=== PATIENT | female | born 1950 | race Caucasian/White ===

== ENCOUNTER 2024-01-15 06:28 | Inpatient (IN) | payer OTHER ==
[2024-01-10 12:58] LABS: Absolute Eosinophils 0.1 K/uL (0-0.5); Absolute Lymphocytes (CBC) 1.5 K/uL (0.7-4.9); Absolute Monocytes 0.5 K/uL (0.1-1.3); Basophils % 0.4 % (0-1.3); Hemoglobin 11.6 g/dL (12.0-15.0); Lymphocytes % 28.7 % (15.3-44.8); MCH 29.6 pg (27.0-35.0); MCHC 32.3 g/dL (32.0-36.0); MCV 91.7 fL (80-100); Monocytes % 9.3 % (3.3-12.3); Neutrophils % 59.6 % (41.7-73.7); Platelets 285 thou/uL (152-406); RBC Red Blood Cell Count 3.93 M/uL (3.86-4.86); Red Cell Distribution Width 12.8 % (12.1-15.2)
[2024-01-10 13:07] LABS: Specific Gravity 1.013 (1.005-1.030); Urine Bilirubin NEGATIVE (Negative); Urine Blood Negative (Negative); Urine Clarity Clear (Clear); Urine Color Light-Yellow (Yellow); Urine Glucose NEGATIVE (Negative); Urine Ketones NEGATIVE (Negative); Urine Microscopic Reflex YN NO UMIC; Urine Nitrite NEGATIVE (Negative); Urine Protein NEGATIVE (Negative); Urine Urobilinogen Normal (Normal); Urine pH 7.5 (5.0-7.0)
[2024-01-10 13:14] LABS: PT Prothrombin Time 11.6 SECONDS (9.4-12.5)
[2024-01-10 13:15] LABS: Protime INR 1.04
[2024-01-10 13:18] LABS: Albumin 3.1 g/dL (3.4-5.0); Albumin/Globulin Ratio 0.8 (1.1-1.8); Anion Gap 6.5 mEq/L (5.0-15.0); Bilirubin Total 0.2 mg/dL (0.2-1.0); Potassium 4.5 mEq/L (3.5-5.1); Protein, Total 7.1 g/dL (6.4-8.2)
[2024-01-15] MEDS ORDERED: CEFAZOLIN SODIUM 2 GM/VIAL ONE (06:32)
[2024-01-15] MEDS ORDERED: GABAPENTIN 100 MG CAP ONE (06:32)
[2024-01-15] MEDS ORDERED: Oxycodone HCl/Acetaminophen 5/325 MG TAB ONE (06:33)
[2024-01-15] MEDS ORDERED: ACETAMINOPHEN 500 MG TAB ONE (06:34)
[2024-01-15] MEDS ORDERED: CELECOXIB 100 MG CAPSULE ONE (06:34)
[2024-01-15] MEDS ORDERED: NA CHLORIDE 0.9% 1,000 ML ONE (06:35)
[2024-01-15] MEDS ORDERED: TRANEXAMIC ACID 1,000 MG/10 ML VIAL IV ONE (06:36)
[2024-01-15] MEDS ORDERED: BUPIVACAINE 0.75% (PF) 2 ML SP ONE (06:42)
[2024-01-15] MEDS ORDERED: MORPHINE SULFATE/PF 1 MG/ML (10 ML AMP) ONE (06:43)
[2024-01-15] MEDS ORDERED: HYDRALAZINE HCL 20 MG/ML VIAL ONE (06:44)
[2024-01-15] MEDS: HYDRALAZINE HCL 20 MG/ML VIAL IV ONE (06:47)
[2024-01-15] MEDS ORDERED: LIDOCAINE 1% MPF 5 ML VIAL ONE (06:53)
[2024-01-15] MEDS ORDERED: MIDAZOLAM HCL 2 MG/2 ML INJ ONE (06:53)
[2024-01-15] MEDS ORDERED: FENTANYL CITR 100 MCG/2 ML ONE (06:54)
[2024-01-15] MEDS: CELECOXIB 100 MG CAPSULE PO ONE (06:59)
[2024-01-15] MEDS: GABAPENTIN 300 MG CAP PO ONE (06:59)
[2024-01-15] MEDS: Oxycodone HCl/Acetaminophen 5/325 MG TAB PO ONE (06:59)
[2024-01-15] MEDS: ACETAMINOPHEN 500 MG TAB PO ONE (06:59)
[2024-01-15] MEDS ORDERED: propofoL 200 MG/20 ML VIAL IV ONE (07:28)
[2024-01-15] MEDS ORDERED: KETOROLAC 30 MG/ML INJ ONE (07:48)
[2024-01-15] MEDS ORDERED: dexAMETHasone 4 MG/ML VIAL ONE (07:48)
[2024-01-15] MEDS ORDERED: ONDANSETRON 4 MG/2 ML VIAL ONE (07:48)
[2024-01-15] MEDS ORDERED: EPHEDRINE SULF 50 MG/ML VIAL ONE (08:06)
[2024-01-15] MEDS: NA CHLORIDE 0.9% 1,000 ML ONE ×3 (08:06→18:25)
[2024-01-15] MEDS ORDERED: KETAMINE HCL IN 0.9 % NACL 50 MG/5 ML SYRINGE IV ONE (08:22)
--- NOTE | 2024-01-15 09:12 | RAD REPORT ---
EXAM DESCRIPTION: RAD - Hip Left 1 View - 01/15/2024 9:05 am CLINICAL HISTORY: LT TOTAL HIP ARTHROPLASTY COMPARISON: No comparisons FINDINGS: Left total hip arthroplasty in progress radiographs submitted. Femoral stem component and acetabular cup evident placed. Skin defect noted laterally.
--- NOTE | 2024-01-15 09:18 | P.BOP ---
Preoperative diagnosis: left severe arthritc hip Postoperative diagnosis: same Primary procedure: left morgan Estimated blood loss: 100ccs Anesthesia: Spinal Transferred to: Recovery Room Condition: Good
--- OUTSIDE RECORDS SUMMARY | 2024-01-15 09:34 | XMS REPORT | Continuity of Care Document ---
Author Name Unknown Address [address] [place] [address] [facility] thconnect Address [address] [place] [address] Care Team Providers Care Well Tester Name Role Phone ERIC BUTCHER Primary Care Physician Jason morillo RADIOLOGY Attending Clinician Unavailable Radiology Attending Clinician Unavailable Cayden Barraza Cardiology Attending Clinician Unavailable ERIC BUTCHER Admitting Clinician Unavailab le KNOW, DOES_NOT Admitting Clinician Unavailable Payers Payer Name Policy Type Policy Number Effective Date Expirati on Date Source [facility] [employer] [place] [id number] 2017 00:00:00 Allergies, Adverse Reactions, Alerts Allergy Name Allergy Type Status Severity Reaction(s) Onset Date Inactive Date Treating Clinician Comments Source No Known Allergie s DA Active U 07-05 00:00: 00 [facility] NO KNOWN ALLERGIE S Drug Class Active [facility] Social History Social Habit Start Date Stop Date Quantity Comments Source Sexual orientation U [facility] Sex Assigned At 1950 00:00:00 1950 00:00:00 [facility] Smoking Status Start Date Stop Date Source Tobacco smoking consumption unknown [facility] Encounters Start Date/Time End Date/Time Encounter Type Admission Type Attending Clinicians Care Facility Care Department Encounter ID Source 2023-09-17 08:47:59 2023-09-17 23:59:00 Outpatient R RADIOLOGY [facility] [id number] [facility] 2023-09-17 08:45:00 2023-09-17 23:59:00 Hospital Encounter Radiology [facility] [id number] [facility] 2023-07-07 06:55:00 2023-07-07 06:55:00 Outpatient Cayden Mayers [facility] CATH [id number] [facility] Results Test Description Test Time Test Comments Results Result Co mments Source COMPREHENSIVE METABOLIC [id number] 09:24:00* Test Item Value Reference Range Interpretation Comme nts SODIUM (test code = NA) 140 mmol/L 134-147 N POTASSIUM (test code = K) 4.2 mmol/L 3.4-5.0 N CHLORIDE (test code = CL) 108 mmol/L 100-108 N CARBON DIOXIDE (test code = CO2) 32 mmol/L 21-32 N ANION GAP (test code = GAP) 0.0 GAP calc 4.0-15.0 L GLUCOSE (test code = GLU) 110 MG/DL 70-110 N BLOOD UREA NITROGEN (test code = BUN) 12 MG/DL 7-18 N GLOMERULAR FILTRATION RATE (test code = GFR) >=60 max estimate estGFR >60 The Glomerular Filtration Rate is a calculated parameterbased on serum Creatinine, patient age and sex. GFR valuesless than 60 mL/min/1.73 square meters are indicative ofChronic Kidney Disease. Values less than 15 mL/min/1.73square meters indicate Kidney failure. The calculation forGFR is based on the CKD-EPI (2020) calculation. This formulais race indifferent and is the recommended formula for GFRby the National Kidney Foundation for Adults.The GFR will not calculate if the sex is unknown or if thepatient's age is <18 years. CREATININE (test code = CREAT) 0.6 MG/DL 0.6-1.0 N TOTAL PROTEIN (test code = PROT) 8.1 G/DL 6.4-8.2 N ALBUMIN (test code = ALB) 3.7 G/DL 3.4-5.0 N GLOBULIN (test code = GLOB) 4.4 GM/dL ALBUMIN/GLOBULIN RATIO (test code = A/G) 0.8 RATIO 1.2-2.2 L CALCIUM (test code = CA) 10.0 MG/DL 8.5-10.1 N BILIRUBIN TOTAL (test code = BILT) 0.40 MG/DL 0.2-1.2 N SGOT/AST (test code = AST) 17 Unit/L 15-37 N SGPT/ALT (test code = ALT) 21 Unit/L 12-78 N ALKALINE PHOSPHATASE TOTAL (test code = ALKP) 135 Unit/L 45-117 H LIPID PROFILE (CORONARY RISK)2023-07-07 09:24:00* Test Item Value Reference Range Interpretation Comme nts TRIGLYCERIDES (test code = TRIG) 127 MG/DL 0-150 N CHOLESTEROL (test code = CHOL) 167 MG/DL 133-200 N CHOLESTEROL/HDL RATIO (test code = CHOLHDL) 3.15 RATIO See_Comment RISK ASSOCIATED WITH CHOL/HDL RATIOS: RISK MALE FEMALE1/2 AVERAGE 3.43 3.27AVERAGE 4.97 4.442X AVERAGE 9.55 7.053X AVERAGE 23.39 11.04 NOTE THAT THE REFERENCE VALUE IS RELATED TO RISK LEVELS ASRECOMMENDED BY THE [facility]ATIONAL HE[facility], LUNG, AND BLOOD INSTITUTE. [Automated message] The system which generated this result transmitted reference range: 0-. The reference range was not used to interpret this result as normal/abnormal. HDL CHOLESTEROL (test code = HDL) 53 MG/DL 40-59 N NON-HDL CHOLESTEROL (test code = NHDL) 114 mg/dL <130 LIPOPROTEIN LDL (test code = LDL) 96 MG/DL 0-129 N <100 [id number] 0 - 129 NEAR OPTIMAL/ABOVE [id number] - 159 [id number] - 189 HIGH>OR= 190 VERY HIGHNOTE THAT GUIDELINES ARE PROVIDED BY NATIONAL CHOLESTEROLEDUCATION PROGRAM ADULT TREATMENT PANEL III LDL/HDL (test code = LDL/HDL) 1.81 Ratio See_Comment N [Automated messa ge] The system which generated this result transmitted reference range: 1.48-3.22 Avg. The reference range was not used to interpret this result as normal/abnormal. PROTHROMBIN [id number] 07:52:00* Test Item Value Reference Range Interpretation Comme nts PT PATIENT (test code = PTP) 11.9 SECONDS 9.3-12.9 N INTERNATIONAL NORMAL RATIO (test code = INR) 1.08 INR Unit 0.8-1.2 N TARGET INR BY INDICATION Indication INR1. Prophylaxis of venous thrombosis 2.0 - 3.0 (orthopedic surgery), Prophylaxis of venous thrombosis (other than high-risk surgery), Treatment of Deep Vein Thrombosis/Pulmonary Embolism, Prevention of systemic embolism - Tissue heart valves, Acute Myocardial Infarction (to prevent systemic embolism), Valvular heart disease, Acute Myocardial Infarction (to prevent systemic embolism), Valvular heart disease, Atrial Fibrillation, Bileaflet mechanical valve in aortic position.2. Mechanical prosthetic valves (high risk), 2.5 - 3.5 Presence of Lupus Anticoagulant or Antiphospholipid Antibodies, Prevention of systemic embolism - Acute Myocardial Infarction (to prevent recurrent infarct). CBC W/AUTO [id number] 07:47:00* Test Item Value Reference Range Interpretation Comme nts WHITE BLOOD CELL (test code = WBC) 6.3 K/mm3 3.5-11.0 N RED BLOOD CELL (test code = RBC) 4.74 M/mm3 4.70-6.10 N HEMOGLOBIN (test code = HGB) 13.8 G/DL 10.4-14.9 N HEMATOCRIT (test code = HCT) 43.0 % 31.5-44.1 N MEAN CELL VOLUME (test code = MCV) 90.7 Fl 84.5-98.6 N MEAN CELL HGB (test code = MCH) 29.1 pg 27.0-34.2 N MEAN CELL HGB CONCETRATION (test code = MCHC) 32.1 G/DL 31.5-34.0 N RED CELL DISTRIBUTION WIDTH (test code = RDW) 12.2 SD 11.5-14.5 N PLATELET COUNT (test code = PLT) 352 K/mm3 150-450 N MEAN PLATELET VOLUME (test c ode = MPV) 10.70 fL 7.0-10.5 H NEUTROPHIL % (test code = NT%) 63.7 % 40-76 N IMMATURE GRANULOCYTE % (test code = IG%) 0.2 % 0.0-5.0 N LYMPHOCYTE % (test code = LY%) 24.0 % 20.5-51.1 N MONOCYTE % (test code = MO%) 8.6 % 1.7-9.3 N EOSINOPHIL % (test code = EO%) 3.2 % 0.0-6.0 N BASOPHIL % (test code = BA%) 0.3 % 0.0-2.0 N NUCLEATED RBC % (test code = NRBC%) 0.0 /100WBC% 0.0-1.0 N NEUTROPHIL # (test code = NT#) 4.0 K/mm3 1.8-7.6 N IMMATURE GRANULOCYTE # (test code = IG#) 0.01 x10 3/uL 0.00-0.03 N LYMPHOCYTE # (test code = LY#) 1.5 K/mm3 0.6-3.2 N MONOCYTE # (test code = MO#) 0.5 K/mm3 0.3-1.1 N EOSINOPHIL # (test code = EO#) 0.2 K/mm3 0.0-0.4 N BASOPHIL # (test code = BA#) 0.0 K/mm3 0.0-0.1 N NUCLEATED RBC # (test code = NRBC#) 0.0 K/mm3 0.0-0.1 N Notes Date/Time Note Provider Source 2023-07-07 10:42:00 [id number] [address] PATIENT NAME: PUJA JEAN ADMIT DATE: 07/07/23 ACCOUNT NO: [id number] ROOM NO: AGE: 72 REPORT TYPE: CARDIAC CATHETERIZATION REPORT SEX: F ADMITTING PHYSICIAN: ATTENDING PHYSICIAN: Cayden Barraza MD PROCEDURE DATE: 07/07/2023 FILTER TIP CATCHER: Cayden Barraza MD INDICATION FOR THE PROCEDURE: Atherosclerotic cardiovascular disease. PREOPERATIVE EVALUATION: Abnormal nuclear stress test. TITLE OF PROCEDURE: 1. Left heart catheterization. 2. Abdominal and aortoiliac angiograms. 3. Sealing device. RECOMMENDATION: Medical therapy and risk factor modification. FINAL DIAGNOSES: Two-vessel coronary artery disease, calcified arteries, mitral annular calcification, aortoiliac disease. CONTRAST: 150 mL. ANESTHESIA: Conscious sedation with Versed and fentanyl. 1% lidocaine for local anesthesia. COMPLICATIONS: None. ESTIMATED BLOOD LOSS: Minimal. PROCEDURE IN DETAIL: After informed consent, the patient was brought to the cardiac catheterization lab in a stable fasting nonsedated state. She was prepped and draped in the usual sterile fashion. After conscious sedation, 1% lidocaine was administered to the right common femoral artery area for local anesthesia. A 6-Icelandic sheath was placed in the right common femoral artery using standard techniques and fluoroscopy. After heparinization, access to the heart through the aorta was difficult due to the calcified plaquing and significant disease, so at the end of the procedure, I did an abdominal angiogram, which shows a small suprarenal abdominal aortic aneurysm at 2.5 cm. The right renal was 30%. The infrarenal aorta is heavily calcified with an eccentric plaque right before the bifurcation around 50%. The ostial common iliac on the right was 55% and then 45% the rest of the common iliac, 30% the right external iliac, 30% left common iliac and left external iliac. I did the left heart catheterization. The left main is very short. There is a hazy 55% lesion in the ostial LAD. The rest of the LAD appears to have no angiographic PATIENT NAME: PUJA JEAN disease. There is a small ramus intermedius with 90% disease. The circumflex is a large, dominant vessel with no angiographic disease. The right coronary artery is a small nondominant vessel with no angiographic disease. Left ventricular angiogram showed ejection fraction of 70%. Left ventricular end-diastolic pressure of 16. No wall motion abnormalities or aortic valve gradient. The right groin was sealed using Angio-Seal. There were no complications. The patient tolerated the procedure well and was transferred to the holding area for observation to be discharged in few hours on medical therapy and risk factor modification. There were no complications. Dictated By: Cayden Barraza MD Date Dictated: 07/07/2023 10:42:02 Date Transcribed: 07/07/2023 12:23:29 QUINTIN/ELIZABETH Teague #: [id number] Receipt ID: [id number] Authenticated by Cayden Barraza MD On 07/08/2023 08:09:19 AM at 0809 PATIENT NAME: PUJA JEAN [facility] 2023-07-07 07:34:00 [id number] [address] PATIENT NAME: PUJA JEAN ADMIT DATE: 07/07/23 ACCOUNT NO: [id number] ROOM NO: AGE: 72 REPORT TYPE: eELECTROCARDIOGRAM SEX: F ADMITTING PHYSICIAN: ATTENDING PHYSICIAN: Cayden Barraza MD Order: [id number] Test Reason : Pre Heart Cath Test Date/Time Stamp: SunJul 07 2023 07:34:14 Blood Pressure : / mmHG Vent. Rate : 064 BPM Atrial Rate : 064 BPM P-R Int : 164 ms QRS Dur : 088 ms QT Int : 398 ms P-R-T Axes : 059 067 069 degrees QTc Int : 410 ms Sinus rhythm with premature supraventricular complexes Otherwise normal ECG No previous ECGs available Confirmed by CAYDEN BARRAZA ([id number]) on 07/07/2023 8:25:26 AM Referred By: Cayden Barraza Confirmed by:CAYDEN BARRAZA at 0825 PATIENT NAME: PUJA JEAN [facility] 2023-07-06 07:12:00 [id number] [address] PATIENT NAME: PUJA JEAN ADMIT DATE: ACCOUNT NO: [id number] ROOM NO: AGE: 72 REPORT TYPE: HISTORY AND PHYSICAL SEX: F ADMITTING PHYSICIAN: ATTENDING PHYSICIAN: Cayden Barraza MD Cardiology PATIENT NAME: PUJA JEAN ADMIT DATE:07/07/2023 ADMISSION DATE: 07/07/2023 07:30:00 ADMISSION HISTORY AND PHYSICAL FILTER TIP CATCHER: Cayden Barraza MD. REASON FOR ADMISSION: Ischemia, suspected significant coronary artery disease, multiple cardiovascular risk factors and history of arrhythmias for cardiac catheterization and possible revascularization. HISTORY OF PRESENT ILLNESS: Puja is a 72-year-old lady who presented to my office in 05/2023 for evaluation of multiple risk factors, paroxysmal atrial fibrillation, tachycardia, and evaluation for left total hip replacement. The patient underwent noninvasive workup. Her echocardiogram showed mild mitral regurgitation. Ejection fraction around 50 to 55%, pulmonary hypertension 40 to 50. Holter monitoring showed 2 short paroxysmal supraventricular tachycardia and atrial fibrillation runs. Chemical stress test showed mild anterior and severe inferolateral and inferoposterior ischemia with possible scarring, ejection fraction was normal. The patient has symptoms of dyspnea. No other cardiac symptoms. She has had history of strokes, stroke was about 20 years ago, told possibly due to atrial fibrillation. No specific records available. The patient has been on aspirin over the years and she is here today for cardiac catheterization to assess her coronaries prior to clearing her for orthopedic surgery. PAST MEDICAL HISTORY: Remarkable for paroxysmal atrial fibrillation, hypertension, hyperlipidemia, CVA, hypothyroidism, osteoarthritis, diabetes, borderline cataracts, overactive bladder, and depression. PAST SURGICAL HISTORY: C-sections in the past. ALLERGIES: NO KNOWN DRUG ALLERGIES. MEDICATIONS: Metoprolol 50 mg daily, atorvastatin 20 mg daily, aspirin 325 mg daily, pain medications, Levothroid 150 mcg daily, gemfibrozil 600 mg b.i.d., liothyronine 5 mcg daily, oxybutynin 5 mg daily, sertraline 25 mg daily, Celebrex 200 mg daily, metformin 500 mg twice a day on hold, and enalapril 20 mg twice a day. SOCIAL HISTORY: There is no history of smoking, alcohol, or street drug use. The patient is retired. PATIENT NAME: PUJA JEAN FAMILY HISTORY: Positive for atherosclerotic cardiovascular disease. REVIEW OF SYSTEMS: Remarkable for the above, in addition to cataracts, thyroid issues, dry mouth, osteoarthritis, depression. No acute GI or symptoms. No recent TIAs or strokes. She has had an old stroke as mentioned above. Rest of the review of systems is enclosed. PHYSICAL EXAMINATION: GENERAL: Reveals a pleasant 72-year-old lady in no acute distress. VITAL SIGNS: Blood pressure 126/74, pulse 64 and regular, respiratory rate 16 and unlabored, temperature afebrile. HEENT: Head is atraumatic, normocephalic. Eyes and ENT examination within normal for age. NECK: Supple, no jugular venous distention, bruits, or lymphadenopathy. Normal upstroke. LUNGS: Clear and resonant. HEART: Regular rate and rhythm, 2/6 systolic ejection murmur at the left lower sternal border. No gallops. ABDOMEN: Soft, no tenderness, no organomegaly, no masses or bruits. EXTREMITIES: 2+ distal pulses. No edema, cyanosis, or clubbing. NEUROLOGIC: Alert and oriented x3. The patient has diminished sensation on the left side since the stroke; otherwise, the motor strength is equal. LABORATORY DATA: Pending. Noninvasive cardiovascular workup enclosed. IMPRESSION: This is a 72-year-old lady with dyspnea, abnormal nuclear stress test, multiple cardiovascular risk factors, appears to have significant coronary artery disease. She needs clearance for left total hip replacement. The patient is here for cardiac catheterization to assess her coronaries prior to clearance for surgery. PLAN: The recommendation is to proceed with the above-mentioned procedures. The risks and benefits of the planned procedures were discussed in detail with the patient and available family members and she is willing to proceed. Rest as per orders. Dictated By: Cayden Barraza MD Date Dictated: 07/06/2023 07:12:27 Date Transcribed: 07/06/2023 07:40:00 QUINTIN/ANIBAL/ALEX Receipt ID: [id number] Authenticated and Edited by Cayden Barraza MD On 07/06/23 4:00:29 PM at 0402 PATIENT NAME: PUJA JEAN [facility] Aron
[2024-01-15 10:09] LABS: Hematocrit 30.8 % (36.0-45.0); Hemoglobin 10.2 g/dL (12.0-15.0)
--- NOTE | 2024-01-15 10:56 | OP ---
Date of Procedure: 01/15/2024 Surgeon: Eben Kelly MD Preoperative Diagnosis: Severe left hip arthritis. Postoperative Diagnosis: Severe left hip arthritis. Procedure: Left total hip arthroplasty using the John system. Estimated Blood Loss: 100 cc. Complications: There were no complications. Indications For Operation: Ms. Gold is a 73-year-old female who has horrible arthritis related to h er left hip. It is nearly ankylosed, although she does have flexion to approximately 30 degrees, she has no internal or external rotation. She walks with a pronounced limp as well as assistive device and suffering from tremendous pain by report. X-rays revealed essentially destroyed hip with large o steophytes and loss of complete joint space. Risks, benefits, and alternatives of the procedure had been discussed with the patient including that this is somewhat difficult, also will have to lengthen her leg probably somewhat. There are risks to dislocation and possibility of nerve injuries are def initely present. She was told that we will deal with this as carefully as we can with this and she a grees to proceed. Description Of Procedure: The patient was taken to the operating room. Spinal anesthesia was obtain ed by Anesthesia staff. Following this, a Bentley was placed. She was then placed in right side down position with all of her bony prominences being checked and an axillary roll. After this, left lower extremity was then prepped and draped in usual sterile fashion with the exception that she only has about 20 degrees of abduction, essentially no external rotation making prepping somewhat difficult. However, we were very careful to prep in the standard fashion regarding all surfaces. Following this , she was then draped in a standard fashion and a standard posterior lateral incision was taken down carefully through skin and soft tissues. Meticulous hemostasis being maintained using Bovie electroc autery. This led down to the fascia. A small stab wound was made in the fascia. It was carried up near to the tip of the greater trochanter. It was then curved gently backwards. The Charnley was th en carefully placed. It should be noted that she has a lot of fat posterior to the greater trochante r, but care was taken to palpate many times for the sciatic nerve as the external rotators are taken down and tagged for later repair, there was essentially no identifiable capsule leading down to a sig nificant amount of jose bone. Movement of the hip did not reveal the hip itself as it appeared to b e nearly completely covered posteriorly and osteotome was then used to remove some of the superior an d posterior osteophytes, which then did allow for visualization of the hip. More osteophytes were ta darlin off anteriorly to allow for better visualization. Now, the hip was able to be identified as it w as moved through flexion and extension as well as internal and external rotation. Very slow meticulo us removal of osteophytes, as well as, takedown of soft tissues allowed for dislocation of the hip. It was then cut somewhat shorter neck cut than normal as I felt this would be very tight working cond itions. There was found to be huge osteophytes anteriorly, which were then removed. Attention was t hen turned to the acetabulum. The head sized using ring gauges and initial reaming is more or less s traight medial to help deepen the socket. It was then converted into sequential reaming to a size 51 . A size 52 cup was then attempted to be placed, but definitely did not stick. Decision made that p edwinably should further deepen this using the reamer and it was very carefully reamed and after the re amer was removed, there was some medial wall, although posterior wall was getting quite thin. After this, the cup was then placed again. It now appeared to hold very well. However, most likely, it wa s decided at that point to place a screw. Attention was then turned to the femur. A box stacker was then used to establish lateralization and it was then sequentially broached to a size 5. After this, x-rays were taken which were somewhat difficult to interpret because left hemipelvis was difficult v isualization. However, the cup itself appeared to be in fairly good position. Decision was made to place a size 25 mm screw in standard fashion which has a decent bite, although I would not say robust . Following this, a size 5 stem was placed. It was then trialed with a standard. It was extremely difficult to reduce. Therefore, I trialed with the first minus. The first minus was then placed wit hin the acetabulum after the liner was placed and it is stable to flexion of 90 degrees, full adducti on, internal rotation to at least 40 degrees with a significant amount of traction. It was then nazia thang and it was selected as a final size. The final ball was then tapped into place and relocated. I t was stable in the same parameters. The external rotators were carefully repaired back to the great er trochanter via bone tunnels. However, this was able to be done with only 1 stay suture as the ext ernal rotators were definitely atrophic, although the piriformis tendon is repaired back. Following this, it was again copiously irrigated. The fascia was closed in a watertight fashion using heavy Vi cryl sutures. This was followed by closure of skin with Vicryl and jaden. The patient was then pl aced in Aquacel dressing and taken to recovery room. /[place] Voice ID: [id number] Report ID: [id number]
[2024-01-15 13:41] VITALS: BMI 22.6
[2024-01-15] MEDS: ALBUMIN HUMAN 25% 100 ML IV SCH (13:57)
[2024-01-15] MEDS: MIDODRINE HCL 5 MG TABLET PO SCH (13:57)
[2024-01-15] MEDS: NA CHLORIDE 0.9% 1,000 ML IV SCH (13:57)
[2024-01-15] MEDS: NA CHLORIDE 0.9% 1,000 ML IV ONE (13:57)
[2024-01-15] MEDS: CEFAZOLIN 1 GM in NA CHLORIDE 0.9% 50 ML IVPB SCH (16:52)
[2024-01-15 17:40] LABS: Hematocrit 30.9 % (36.0-45.0); Hemoglobin 9.7 g/dL (12.0-15.0)
[2024-01-15] MEDS: HYDROCORTISONE SUC 100 MG INJ ONE (18:12)
[2024-01-15] MEDS: HYDROCORTISONE SUC 100 MG INJ IV ONE (18:20)
--- NOTE | 2024-01-15 22:54 | P.CNS ---
Date of Consult: 01/15/24 Reason for Consult: Medical management; hypotension Requesting Physician: Eben Kelly Chief Complaint: medical management; hypotension History of Present Illness: Patient is a 73-year-old female who presented to the hospital for a total hip arthroplasty. He had patient came into the hospital earlier today with a systolic blood pressure of 160. She received IV hydralazine as well as multiple medications prior to surgery. After surgery her blood pressure had decreased significantly with a systolic of 70s and a diastolic of 40s. Patient was given IV fluid boluses and her blood pressure has improved somewhat. She is awake and alert and oriented to person place and time. She has no other complaints except she is a little lethargic. At this time, we will continue with fluid boluses and hopefully as the anesthesia comes out of her system her blood pressure will stabilize. Patient will be admitted to the hospital for further evaluation for adrenal insufficiency as well as assess her ejection fraction with an ec hocardiogram. Monitor her renal function and her urine output closely. Patient will be admitted to the hospital for further evaluation. Will monitor her in ICU for the time being. Allergies No Known Allergies Allergy (Unverified 01/16/24 01:23) Home Medications: Aspirin [Aspirin EC 325 MG] 325 mg PO DAILY 08/31/23 Celecoxib [Celebrex] 200 mg PO BID 08/31/23 Enalapril Maleate 20 mg PO DAILY 08/31/23 Hydrocodone Bit/Acetaminophen [Hydrocodon-Acetaminophn 10-325] 0.5 - 1 tab PO Q6HP PRN 08/31/23 Levothyroxine Sodium [Synthroid] 150 mcg PO DAILY 08/31/23 Liothyronine Sodium [Cytomel] 5 mcg PO DAILY 08/31/23 Metoprolol Succinate [Toprol Xl] 50 mg PO DAILY 08/31/23 Oxybutynin Chloride [Oxybutynin Chloride ER] 2 tab PO TID 08/31/23 Risedronate Sodium [Actonel] 35 mg PO EVERY 7TH DAY 08/31/23 Sertraline [Zoloft] 25 mg PO DAILY 08/31/23 gemfibroziL [Lopid] 600 mg PO DAILY 08/31/23 Atorvastatin Calcium [Lipitor] 20 mg PO BEDTIME 01/10/24 Metformin HCl [Glucophage] 850 mg PO DAILY WITH BREAKFAST 01/10/24 - Past Medical/Surgical History Diabetic: Yes -: HTN -: HLD -: Hypothyroidism -: DM II -: AFIB -: Arthritis -: diabetes -: x 2 -: sinus surgery - Family History Father Medical History: Heart disease, Diabetes Mother Medical History: Heart disease Sister Medical History: Heart disease - Social History Smoking Status: Former smoker Alcohol use: No CD- Drugs: No Caffeine use: Yes Place of Residence: Home Review of Systems 10-point ROS is otherwise unremarkable Physical Examination Temp Pulse Resp BP Pulse Ox 97.8 F 88 17 76/56 L 100 01/15/24 16:00 01/15/24 18:00 01/15/24 18:00 01/15/24 18:00 01/15/24 18:00 General: Alert, In no apparent distress, Oriented x3 HEENT: Atraumatic, PERRLA, Mucous membr. moist/pink, EOMI, Sclerae nonicteric Neck: Supple, 2+ carotid pulse no bruit, No LAD, Without JVD or thyroid abnormality Respiratory: Clear to auscultation bilaterally, Normal air movement Cardiovascular: Regular rate/rhythm, Normal S1 S2, No murmurs Gastrointestinal: Normal bowel sounds, Soft and benign, Non-distended, No tenderness Musculoskeletal: No clubbing, No swelling, No tenderness Integumentary: No rashes Neurological: Normal speech, Normal tone, Sensation intact, Cranial nerves 3-12 intact, Normal affect Lymphatics: No axilla or inguinal lymphadenopathy Laboratory Data (last 24 hrs) 01/15/24 01/15/24 17:20 10:00 Hgb 9.7 L 10.2 L Hct 30.9 L 30.8 L - Problems (1) S/P total left hip arthroplasty Current Visit: Yes Status: Acute (2) Hypotension Current Visit: Yes Status: Acute (3) History of hypertension Current Visit: Yes Status: Acute (4) Hypothyroidism Current Visit: Yes Status: Acute (5) Osteoarthritis Current Visit: Yes Status: Acute Conclusions/ Impression: Plan: 1. Continue with IV fluids 2. Monitor H&H 3. Echocardiogram 4. Cortisol levels 5. Thyroid studies 6. Hold antihypertensives 7. PICC line placement; 8. Possible vasopressor support 9. GI and DVT prophylaxis Critical Care: Yes Time Spent Managing Pts care (In Minutes): 50
[2024-01-16 05:22] LABS: Absolute Lymphocytes (CBC) 1.1 K/uL (0.7-4.9); Absolute Monocytes 1.3 K/uL (0.1-1.3); Absolute Neutrophil 12.2 K/uL (1.8-8.0); Basophils % 0.1 % (0-1.3); Hematocrit 27.3 % (36.0-45.0); Hemoglobin 8.8 g/dL (12.0-15.0); Lymphocytes % 7.6 % (15.3-44.8); MCH 30.2 pg (27.0-35.0); MCHC 32.2 g/dL (32.0-36.0); MCV 93.9 fL (80-100); Neutrophils % 83.3 % (41.7-73.7); Platelets 256 thou/uL (152-406); Red Cell Distribution Width 13.2 % (12.1-15.2)
[2024-01-16 05:46] LABS: ALT/SGPT 15 U/L (13-56); AST/SGOT 33 U/L (15-37); Albumin 2.8 g/dL (3.4-5.0); Alkaline Phosphatase 59 U/L (45-117); BUN Blood Urea Nitrogen 29 mg/dL (7-18); Bicarbonate 26 mEq/L (21-32); Globulin 2.8 g/dL (2.3-3.5); Glomerular Filtration Rate 34 ml/min (=/>90); Glucose Level 117 mg/dL (74-106); Magnesium 1.9 mg/dL (1.6-2.4); Protein, Total 5.6 g/dL (6.4-8.2); Sodium Level 143 mEq/L (136-145)
[2024-01-16 05:49] LABS: Bilirubin Total < 0.2 mg/dL (0.2-1.0)
--- NOTE | 2024-01-16 08:02 | RAD REPORT ---
EXAM DESCRIPTION: RAD - Chest Single View - 01/16/2024 5:52 am CLINICAL HISTORY: pneumonia Chest pain. COMPARISON: Chest Pa And Lat (2 Views) dated 08/31/2023 FINDINGS: Portable technique limits examination quality. Mild atelectasis is present in the medial right lung base. Trace bilateral pleural fluid. The heart i s upper limit normal in size. Aortic atherosclerosis. IMPRESSION: Mild atelectasis versus infiltrate medial right lung base
[2024-01-16] MEDS: Mupirocin NASAL 2 APPL/1 GM TUBE NAS SCH (09:00)
[2024-01-16] MEDS: ENOXAPARIN 40 MG/0.4 ML SQ SCH (09:37)
--- NOTE | 2024-01-16 10:34 | RAD REPORT ---
EXAM DESCRIPTION: RAD - Chest Single View - 01/16/2024 10:13 am CLINICAL HISTORY: SONAM PICC COMPARISON: Chest Single View dated 01/16/2024; Chest Pa And Lat (2 Views) dated 08/31/2023 FINDINGS: Portable chest was obtained following placement of a right upper extremity PICC line. The catheter tip projects over the SVC..
[2024-01-16] MEDS: NOREPINEPHRINE 4 MG in D5W 250 ML IV SCH (11:38)
[2024-01-16] MEDS: HYDROCODONE/APAP 7.5/325 MG TAB PO PRN (11:42)
[2024-01-17] MEDS: HYDROCODONE/APAP 7.5/325 MG TAB PO ONE (04:55)
[2024-01-17] MEDS: HYDROCODONE/APAP 7.5/325 MG TAB PO PRN (04:55)
[2024-01-17 05:45] LABS: Hemoglobin 8.2 g/dL (12.0-15.0)
[2024-01-17 06:13] LABS: Anion Gap 8.5 mEq/L (5.0-15.0); BUN Blood Urea Nitrogen 36 mg/dL (7-18); Bicarbonate 24 mEq/L (21-32); Glomerular Filtration Rate 52 ml/min (=/>90); Glucose Level 107 mg/dL (74-106); Potassium 4.5 mEq/L (3.5-5.1); Sodium Level 140 mEq/L (136-145)
[2024-01-17 06:15] LABS: Thyroid Stimulating Hormone < 0.005 uIU/mL (0.358-3.740); Troponin High Sensitivity 230.8 pg/mL (<58.9)
--- NOTE | 2024-01-17 08:14 | ECHO ---
HEIGHT: 5 ft 3 in WEIGHT: 147 lb 0 oz DATE OF STUDY: 01/16/[address]: Neville Munoz MD 2-DIMENSIONAL: YES M.MODE: YES DOPPLER: YES COLOR FLOW: YES TDS: YES PORTABLE: YES DEFINITY: BUBBLE STUDY: DIAGNOSIS: HYPOTENSION CARDIAC HISTORY: CATHERIZATION: YES SURGERY: NO PROSTHETIC VALVE: NO PACEMAKER: NO MEASUREMENTS (cm) DIASTOLIC (NORMALS) SYSTOLIC (NORMALS) IVSd 0.9 (0.6-1.2) LA Diam 2.8 (1.9-4.0) LVEF 60-65% LVIDd 4.2 (3.5-5.7) LVIDs 3.0 (2.0-3.5) %FS 30% LVPWd 1.0 (0.6-1.2) Ao Diam 2.8 (2.0-3.7) 2 DIMENSIONAL ASSESSMENT: RIGHT ATRIUM: MILD ENLARGED LEFT ATRIUM: MILD ENLARGED RIGHT VENTRICLE: NORMAL LEFT VENTRICLE: NORMAL TRICUSPID VALVE: MILD TRICUSPID REGURGITATION MITRAL VALVE: MILD MITRAL REGURGITATION PULMONIC VALVE: NORMAL AORTIC VALVE: NORMAL PERICARDIAL EFFUSION: NONE AORTIC ROOT: NORMAL LEFT VENTRICULAR WALL MOTION: NORMAL DOPPLER/COLOR FLOW: NORMAL COMMENTS: 1. NORMAL LEFT VENTRICULAR SYSTOLIC FUNCTION, EJECTION FRACTION 60-65%, NORMAL WALL MOTION 2. NORMAL DIASTOLIC FUNCTION 3. MODERATE PULMONARY HYPERTENSION (RIGHT VENTRICULAR SYSTOLIC PRESSURE 55-60 mmHg) TECHNOLOGIST: OWEN GARCIA
[2024-01-17] MEDS ORDERED: OXYBUTYNIN ER 5 MG TAB PO SCH (09:00)
[2024-01-17] MEDS ORDERED: RISEDRONATE SODIUM 35 MG PO SCH (09:00)
[2024-01-17] MEDS: DOCUSATE NA 100 MG CAP PO PRN (09:09)
[2024-01-17] MEDS: SERTRALINE HCL 50 MG TAB PO SCH ×2 (09:10→21:35)
[2024-01-17] MEDS: LEVOTHYROXINE SOD 0.05 MG TABLET PO SCH (09:10)
[2024-01-17] MEDS: LIOTHYRONINE SOD 5 MCG TAB PO SCH (09:10)
[2024-01-17] MEDS: gemfibroziL 600 MG TAB PO SCH (09:10)
[2024-01-17] MEDS: ASPIRIN EC 325 MG TABLET PO SCH (09:10)
[2024-01-17] MEDS: CELECOXIB 100 MG CAPSULE PO SCH (09:11)
--- NOTE | 2024-01-17 10:11 | P.PN ---
Subjective Date of Service: 01/16/24 Patient's mentation is still altered. Patient's blood pressure is still on the low side. Holding off on any vasopressors. CT imaging of the brain pending for possible CVA. Review of Systems 10-point ROS is otherwise unremarkable Physical Examination - Vital Signs Temperature: 97.4 F Blood Pressure: 106/30 Pulse: 89 Respirations: 11 Pulse Ox (%): 100 - Physical Exam General: Alert, In no apparent distress, Oriented x3 Respiratory: Clear to auscultation bilaterally, Normal air movement Cardiovascular: Regular rate/rhythm, Normal S1 S2, No murmurs Gastrointestinal: Normal bowel sounds, Soft and benign, Non-distended, No tenderness, No rebound, No guarding Musculoskeletal: No clubbing, No swelling, No tenderness Neurological: Sensation intact, Cranial nerves 3-12 intact - Studies Laboratory Data (last 24 hrs) 01/17/24 01/17/24 01/17/24 05:32 05:32 05:00 Hgb 8.2 L Hct 26.0 L Sodium 140 Cancelled Potassium 4.5 Cancelled BUN 36 H Cancelled Creatinine 1.13 H Cancelled Glucose 107 H Cancelled Medications List Reviewed: Yes Assessment & Plan - Problems (Diagnosis) (1) S/P total left hip arthroplasty Current Visit: Yes Status: Acute (2) Hypotension Current Visit: Yes Status: Acute (3) History of hypertension Current Visit: Yes Status: Acute (4) Hypothyroidism Current Visit: Yes Status: Acute (5) Osteoarthritis Current Visit: Yes Status: Acute - Plan Plan: 1. Patient started on Levophed. Monitoring H&H. Continue with gentle hydration. 2. Echocardiogram pending. CT of the head pending. 3. Cardiology consultation for elevated troponin 4. Monitor hemodynamics closely and continue with physical therapy 5. GI DVT prophylaxis Discharge Plan: Home Plan to discharge in: Greater than 2 days - Advance Directives Does patient have a Living Will: No Does patient have a Durable POA for Healthcare: No - Code Status/Comfort Care Code Status Assessed: Yes Code Status: Full Code Critical Care: Yes Time Spent Managing PTS Care (In Minutes): 45
--- NOTE | 2024-01-17 12:22 | P.CNS ---
Date of Consult: 01/17/24 Chief Complaint: medical management; hypotension History of Present Illness: Patient with PMH of HTN, HLD, was admitted after getting hypotensive after LG, BP was down to 70s systolic, that responded well to IV hydation, upon interview, patient denies having chest pain, no palpitation, no syncope, mild SOB on nasal [place] Allergies No Known Allergies Allergy (Unverified 01/16/24 01:23) Home medications list reviewed: Yes Home Medications: Aspirin [Aspirin EC 325 MG] 325 mg PO DAILY 08/31/23 Celecoxib [Celebrex] 200 mg PO BID 08/31/23 Enalapril Maleate 20 mg PO DAILY 08/31/23 Hydrocodone Bit/Acetaminophen [Hydrocodon-Acetaminophn 10-325] 0.5 - 1 tab PO Q6HP PRN 08/31/23 Levothyroxine Sodium [Synthroid] 150 mcg PO DAILY 08/31/23 Liothyronine Sodium [Cytomel] 5 mcg PO DAILY 08/31/23 Metoprolol Succinate [Toprol Xl] 50 mg PO DAILY 08/31/23 Oxybutynin Chloride [Oxybutynin Chloride ER] 2 tab PO TID 08/31/23 Risedronate Sodium [Actonel] 35 mg PO EVERY 7TH DAY 08/31/23 Sertraline [Zoloft] 25 mg PO BEDTIME 08/31/23 gemfibroziL [Lopid] 600 mg PO DAILY 08/31/23 Atorvastatin Calcium [Lipitor] 20 mg PO BEDTIME 01/10/24 Metformin HCl [Glucophage] 850 mg PO DAILY WITH BREAKFAST 01/10/24 - Past Medical/Surgical History Diabetic: Yes -: HTN -: HLD -: Hypothyroidism -: DM II -: AFIB -: Arthritis -: diabetes -: x 2 -: sinus surgery - Family History Father Medical History: Heart disease, Diabetes Mother Medical History: Heart disease Sister Medical History: Heart disease - Social History Smoking Status: Former smoker Alcohol use: No CD- Drugs: No Caffeine use: Yes Place of Residence: Home Review of Systems 10-point ROS is otherwise unremarkable Physical Examination Temp Pulse Resp BP Pulse Ox 97.4 F 89 11 L 106/30 L 100 01/17/24 10:11 01/17/24 10:11 01/17/24 10:11 01/17/24 10:11 01/17/24 10:11 General: Alert, In no apparent distress HEENT: Atraumatic, PERRLA, Mucous membr. moist/pink, EOMI, Sclerae nonicteric Neck: Supple, 2+ carotid pulse no bruit, No LAD, Without JVD or thyroid abnormality Respiratory: Clear to auscultation bilaterally, Normal air movement Cardiovascular: Regular rate/rhythm, Normal S1 S2 Gastrointestinal: Normal bowel sounds, No tenderness Musculoskeletal: No tenderness Integumentary: No rashes Neurological: Normal gait, Normal speech, Normal tone, Normal affect Lymphatics: No axilla or inguinal lymphadenopathy Laboratory Data (last 24 hrs) 01/17/24 01/17/24 01/17/24 05:32 05:32 05:00 Hgb 8.2 L Hct 26.0 L Sodium 140 Cancelled Potassium 4.5 Cancelled BUN 36 H Cancelled Creatinine 1.13 H Cancelled Glucose 107 H Cancelled - Problems (1) Type 2 [place] (myocardial infarction) Current Visit: Yes Status: Acute Plan: troponin mild elevated but trending down, EKG no ischemic changes, hemodynaimcally stable, 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 enzymes leak are most likely type 2 [place] secondary to hypotension, continue to trend for 3 sets get echo ASA 81 mg daily continue statins. (2) History of hypertension Current Visit: Yes Status: Acute Plan: Patient BP is soft and was started on midodrone. continue to monitor (3) HLD (hyperlipidemia) Current Visit: Yes Status: Acute Plan: continue pravstatin and gemfibrozil
--- NOTE | 2024-01-17 15:37 | RAD REPORT ---
EXAM DESCRIPTION: CT - Head Brain Wo Cont - 01/17/2024 3:24 pm CLINICAL HISTORY: slurred speech Headache, drowsiness COMPARISON: <Comparisons> TECHNIQUE: All CT scans are performed using dose optimization technique as appropriate and may inclu de automated exposure control or mA/KV adjustment according to patient size. FINDINGS: No intracranial hemorrhage, hydrocephalus or extra-axial fluid collection.No areas of brai n edema or evidence of midline shift. 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 The paranasal sinuses and mastoids are clear. The calvarium is intact. IMPRESSION: No acute intracranial abnormality.
[2024-01-17] MEDS: DIGOXIN 0.25 MG/ML AMP ONE (19:13)
[2024-01-17] MEDS: DIGOXIN 0.25 MG/ML AMP IV ONE (19:17)
[2024-01-17] MEDS ORDERED: WATER FOR INJ,STERILE 10 ML IV ONE (20:20)
[2024-01-17] MEDS: AMIODARONE HCL 150 MG/3 ML INJ IV ONE (20:31)
[2024-01-17] MEDS: D5W 100 ML IV ONE (20:31)
[2024-01-17] MEDS: AMIODARONE HCL 150 MG in D5W 100 ML IV STA (20:37)
[2024-01-17] MEDS: AMIODARONE IN DEXTROSE,ISO-OSM 360 MG/200 ML BAG IV ONE (20:55)
[2024-01-17] MEDS: ATORVASTATIN 20 MG TAB PO SCH (21:34)
[2024-01-18] MEDS: AMIODARONE IN DEXTROSE,ISO-OSM 360 MG/200 ML BAG IV SCH (02:47)
[2024-01-18] MEDS: LIOTHYRONINE SOD 5 MCG TAB PO SCH (06:02)
[2024-01-18] MEDS: LEVOTHYROXINE SOD 0.05 MG TABLET PO SCH (06:03)
[2024-01-18 06:04] LABS: Hematocrit 25.7 % (36.0-45.0); Hemoglobin 8.2 g/dL (12.0-15.0)
[2024-01-18 06:18] LABS: Anion Gap 8.3 mEq/L (5.0-15.0); Potassium 4.3 mEq/L (3.5-5.1)
[2024-01-18] MEDS ORDERED: AMIODARONE HCL 450 MG in D5W 241 ML IV SCH (07:00)
[2024-01-18] MEDS: ASPIRIN EC 81 MG TAB PO SCH (09:16)
[2024-01-18] MEDS: AMIODARONE HCL 450 MG in D5W 241 ML IV SCH (12:11)
--- NOTE | 2024-01-18 14:07 | EKG ---
Test Date: 2024-01-17 Test Time: 19:01:52 Insurance Claims Analyst: MARYAN MEASUREMENT RESULTS: Intervals: Rate: 130 [place]: QRSD: 84 QT: 300 QTc: 441 [place]: P: [place]: QRS: 102 T: 155 INTERPRETIVE STATEMENTS: Atrial fibrillation with rapid ventricular response Lateral infarct, age undetermined Abnormal ECG No previous ECG available for comparison Electronically Signed On 01-18-24 14:05:24 CDT by Rome Rutherford
--- NOTE | 2024-01-18 18:02 | PN ---
Date of Progress Note: 01/18/2024 Subjective: Seen by bedside. Doing clinically well. Negative chest pain or shortness of breath. H er blood pressure has improved significantly and the fact it is in the high side and apparently she w ent into atrial fibrillation and started on amiodarone drip and converted to sinus rhythm. Review of Systems: No chest pain, shortness of breath, orthopnea, or cough. No nausea, vomiting, or diarrhea. All othe r systems were reviewed, they were negative. Objective: Vital Signs: Reviewed. Head and Neck: Pupils are equal, reactive to light. Intact eye movements. No JVD. No cervical lym phadenopathy. Neck is supple. Thyroid is not enlarged. Lungs: Clear to auscultation bilaterally. No rhonchi, wheezing, or crackles. No accessory muscle u se. Heart: Irregular. No extra sounds. Abdomen: Soft, nontender. Bowel sounds positive. No organomegaly. No masses or hernia. No rigidi ty or rebound. Extremities: No clubbing or cyanosis. Intact pulses. Skin: No rash. No nodule. Neurologic: Alert, awake, oriented x3. No acute focal deficits appreciated. Lymph Nodes: No cervical or axillary lymphadenopathy. Investigations: Troponin is 230 which is down from 363, BUN 38, creatinine 0.95. Assessment And Recommendations: 1.Atrial fibrillation with rapid ventricular response. This patient's TSH is very low. She has hyp erthyroidism condition and I am not sure if she has taken thyroid medicine at home. I recommend to s tart beta-madelin with metoprolol 25 mg twice a day and patient needs an endocrine evaluation for her hyperthyroid status, and if she had taken thyroid medication, to definitely decrease the dose. 2.Elevated troponins. No chest pain. It is likely demand. However, when she recovers completely, she will need a stress test which can be arranged for as an outpatient, especially the fact that her ejection fraction is normal on echo. 3.Atrial fibrillation with rapid ventricular response, responded well to amiodarone. Once the IV am iodarone load is completed to switch to 100 mg twice a day. Recommend to start anticoagulation with Eliquis 5 mg twice a day. There is no contraindication. 4.Dyslipidemia. Continue statin. I will follow the patient with you. /CARRINGTON Voice ID: [id number] Report ID: [id number]
[2024-01-18] MEDS: LABETALOL 20 MG/4ML SYRINGE IV PRN (21:25)
[2024-01-19] MEDS: ONDANSETRON 4 MG/2 ML VIAL IV PRN (02:37)
[2024-01-19 06:16] LABS: Hematocrit 24.8 % (36.0-45.0)
[2024-01-19] MEDS: AMIODARONE HCL 200 MG TAB PO SCH (08:16)
--- NOTE | 2024-01-19 10:07 | RAD REPORT ---
EXAM DESCRIPTION: CT - Head Brain Wo Cont - 01/19/2024 9:55 am CLINICAL HISTORY: Alteration of awareness/confusion COMPARISON: January 17, 2024 TECHNIQUE: Computed axial tomography of the head was obtained. IV contrast was not requested. All CT scans are performed using dose optimization technique as appropriate and may include automated exposure control or mA/KV adjustment according to patient size. FINDINGS: An intracranial bleed is not seen The ventricles are normal in caliber No extra-axial fluid collection is noted. 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 Fluid within the sinuses/ mastoids is not seen. IMPRESSION: No acute intracranial abnormality is seen If patient's symptoms persist MRI of the brain would be recommended
[2024-01-19] MEDS: METOPROLOL TAR 50 MG TAB PO ONE (10:49)
--- NOTE | 2024-01-19 12:19 | P.PN ---
Date of Service: 01/17/24 Subjective Patient continues to improve with no new complaints. Patient CT imaging were unremarkable. Patient's echocardiogram without any abnormality. However, patient did go into A-fib with RVR. Started on amiodarone and digoxin. Physical Examination - Vital Signs Reviewed - Physical Exam General: Alert, In no apparent distress, Oriented x3; right-sided facial droop Respiratory: Clear to auscultation bilaterally, Normal air movement Cardiovascular: Irregularly irregular rate and rhythm Gastrointestinal: Normal bowel sounds, Soft and benign, Non-distended, No tenderness, No rebound, No guarding Musculoskeletal: No clubbing, No swelling, No tenderness Neurological: No focal deficits Assessment & Plan - Problems (Diagnosis) (1) S/P total left hip arthroplasty Current Visit: Yes Status: Acute (2) Postoperative hypotension with aphasia Current Visit: Yes Status: Acute (3) Atrial fibrillation with rapid ventricular response Current Visit: Yes Status: Acute (4) History of hypertension/hypothyroidism Current Visit: Yes Status: Acute (5) Osteoarthritis Current Visit: Yes Status: Acute - Plan Continue with plan of care as mentioned below: 1. Patient started on Levophed yesterday; weaned off. Monitoring H&H. Continue with gentle hydration. 2. Echocardiogram pending. CT of the head was negative. 3. Cardiology consultation for elevated troponin 4. Monitor hemodynamics closely and continue with PT 5. GI DVT prophylaxis Discharge Plan: Home Plan to discharge in: Greater than 2 days - Advance Directives Does patient have a Living Will: No Does patient have a Durable POA for Healthcare: No - Code Status/Comfort Care Code Status Assessed: Yes Code Status: Full Code Critical Care: Yes Time Spent Managing PTS Care (In Minutes): 35
--- NOTE | 2024-01-19 12:21 | P.PN ---
Date of Service: 01/18/24 Subjective Patient is clinically doing well with no new complaints. Patient is working better with physical therapy. Still very weak. Continue with PT. Repeat CT imaging in the morning. Patient converted back into a sinus rhythm. Continue with oral amiodarone. Physical Examination - Vital Signs Reviewed - Physical Exam General: Alert, In no apparent distress, Oriented x3; right-sided facial droop Respiratory: Clear to auscultation bilaterally Cardiovascular: Irregularly irregular rate and rhythm Gastrointestinal: Normal bowel sounds, Soft and benign, Non-distended, No tenderness, No rebound, No guarding Musculoskeletal: No clubbing, No swelling, No tenderness Neurological: No focal deficits except for aphasia Assessment & Plan - Problems (Diagnosis) (1) S/P total left hip arthroplasty Current Visit: Yes Status: Acute (2) Postoperative hypotension with aphasia Current Visit: Yes Status: Acute (3) Atrial fibrillation with rapid ventricular response Current Visit: Yes Status: Acute (4) History of hypertension/hypothyroidism Current Visit: Yes Status: Acute (5) Osteoarthritis Current Visit: Yes Status: Acute - Plan Continue with plan of care as mentioned below: 1. Patient started on Levophed yesterday; weaned off. Monitoring H&H. Continue with gentle hydration. 2. Echocardiogram reviewed. CT of the head was negative. Will repeat in the morning. 3. Cardiology consultation for elevated troponin; assisted with management of atrial fibrillation 4. Monitor hemodynamics closely and continue with PT 5. GI DVT prophylaxis Discharge Plan: Home Plan to discharge in: Greater than 2 days - Advance Directives Does patient have a Living Will: No Does patient have a Durable POA for Healthcare: No - Code Status/Comfort Care Code Status Assessed: Yes Code Status: Full Code Critical Care: Yes Time Spent Managing PTS Care (In Minutes): 35
--- NOTE | 2024-01-19 12:21 | P.PN ---
Date of Service: 01/19/24 Subjective Patient is doing well with no new complaints. Patient denies any new complaint. Patient remains aphasic. Spoke to patient's sister who agrees her speech is different than what it was prior to surgery. CT scan is unremarkable. Will schedule MRI on Sunday morning. Physical Examination - Vital Signs Reviewed - Physical Exam General: Alert, In no apparent distress, Oriented x3; right-sided facial droop Respiratory: Clear to auscultation bilaterally Cardiovascular: regular rate and rhythm Gastrointestinal: Normal bowel sounds, Soft and benign, Non-distended, No tenderness, No rebound, No guarding Musculoskeletal: No clubbing, No swelling, No tenderness Neurological: No focal deficits except for aphasia Assessment & Plan - Problems (Diagnosis) (1) S/P total left hip arthroplasty Current Visit: Yes Status: Acute (2) Postoperative hypotension with aphasia Current Visit: Yes Status: Acute (3) Atrial fibrillation with rapid ventricular response Current Visit: Yes Status: Acute (4) History of hypertension/hypothyroidism/CVA Current Visit: Yes Status: Acute (5) Osteoarthritis Current Visit: Yes Status: Acute - Plan Continue with plan of care as mentioned below: 1. Patient started on Levophed postoperatively for hypotension. We weaned it off after less than 12 hours. Patient went into atrial fibrillation with rapid ventricular response and had an elevated troponin and was seen by Cardiology. Patient was started on amiodarone drip that was weaned off after 24 hours as patient went back into a sinus rhythm. Cardiology said no further intervention at this time. 2. Echocardiogram reviewed. CT of the head was negative. Will MRI Sunday. 3. Cardiology recommended medical management. 4. Monitor hemodynamics closely and continue with PT 5. GI DVT prophylaxis Discharge Plan: Home Plan to discharge in: Greater than 2 days - Advance Directives Does patient have a Living Will: No Does patient have a Durable POA for Healthcare: No - Code Status/Comfort Care Code Status Assessed: Yes Code Status: Full Code Critical Care: Yes Time Spent Managing PTS Care (In Minutes): 35
[2024-01-19] MEDS: cloNIDine HCL 0.1 MG TAB PO ONE (15:23)
[2024-01-19] MEDS: HYDRALAZINE HCL 25 MG TABLET PO ONE (17:45)
[2024-01-19] MEDS: METOPROLOL TAR 25 MG TAB PO SCH (17:46)
[2024-01-19] MEDS: LOSARTAN POTASSIUM 50 MG TABLET PO SCH (20:50)
[2024-01-20 05:51] LABS: Hemoglobin 7.6 g/dL (12.0-15.0)
--- NOTE | 2024-01-20 08:32 | P.PN ---
Date of Service: 01/20/24 Subjective 01/15/24 Status post left total hip Dr. Kelly, pain control as needed analgesia Speech therapy following- soft and bite sized along with thin liquids at this time. Discharge planning inpatient rehab versus skilled care Physical Examination - Vital Signs Reviewed - Physical Exam General: Alert, In no apparent distress, Oriented x3; right-sided facial droop Respiratory: Clear to auscultation bilaterally Cardiovascular: Irregularly irregular rate and rhythm Gastrointestinal: Normal bowel sounds, Soft and benign, Non-distended, No tenderness, No rebound, No guarding Musculoskeletal: No clubbing, No swelling, No tenderness, generalized weakness Neurological: No focal deficits except for aphasia Assessment & Plan - Problems (Diagnosis) (1) S/P total left hip arthroplasty Current Visit: Yes Status: Acute (2) Postoperative hypotension with aphasia Current Visit: Yes Status: Acute (3) Atrial fibrillation with rapid ventricular response Current Visit: Yes Status: Acute (4) History of hypertension/hypothyroidism Current Visit: Yes Status: Acute (5) Osteoarthritis Current Visit: Yes Status: Acute - Plan Continue with plan of care as mentioned below: 1. Patient started on Levophed yesterday; weaned off. Monitoring H&H. Continue with gentle hydration., PICC line care 2. Echocardiogram reviewed. CT of the head was negative. Will repeat in the morning. 3. Cardiology consultation for elevated troponin; assisted with management of atrial fibrillation 4. Monitor hemodynamics closely and continue with PT 5. 01/15/24 Status post left total hip Dr. Kelly, as needed analgesia 6. Speech therapy following- soft and bite sized along with thin liquids at this time. 7. GI DVT prophylaxis 8. Discharge planning inpatient rehab versus skilled care Discharge Plan: Home Plan to discharge in: Greater than 2 days - Advance Directives Does patient have a Living Will: No Does patient have a Durable POA for Healthcare: No - Code Status/Comfort Care Code Status Assessed: Yes Code Status: Full Code Critical Care: Yes Time Spent Managing PTS Care (In Minutes): 35 <Radha Bowers - Last Filed: 01/20/24 16:06> Patient was seen and examined. Events of the last 24 hours have been noted. Spoke with with VIPUL regarding patient's clinical picture after evaluating and examining the patient independently. I performed a substantial part of the MDM during this patient's care today. I personally made or approved the documented management plan and acknowledge its risk of complications. I agree with the findings and documentation provided in the VIPUL's notes. Patient is clinically doing much better. Patient denies any new complaints. Patient still slightly aphasic. Patient's sister is point of contact that she lives closer to the patient's son who was in [place]. We are working on inpatient rehab. MRI of the brain is pending. Patient needs continued aggressive physical therapy intervention. Patient did go into atrial fibrillation with rapid ventricular response. However patient converted with amiodarone drip. Continue with p.o. medications. Patient with elevated troponin and no cardiac intervention at this time. <Neville Munoz - Last Filed: 01/21/24 02:13>
[2024-01-20] MEDS: HYDRALAZINE HCL 10 MG TABLET PO SCH (09:01)
[2024-01-20] MEDS ORDERED: LOSARTAN POTASSIUM 50 MG TABLET PO ONE (10:20)
--- NOTE | 2024-01-20 20:27 | PN ---
Date of Progress Note: 01/20/2024 Subjective: Seen at bedside, doing much better. She is in sinus rhythm. Review of Systems: No chest pain, shortness of breath, orthopnea, cough. No nausea, vomiting, diarrhea. All other syst ems reviewed are negative. Physical Examination: Vital Signs: Reviewed. Head and Neck: Pupils are equal, reactive to light. Intact eye movements. No JVD. No cervical lym phadenopathy. Neck is supple. Thyroid is not enlarged. Lungs: Clear to auscultation bilaterally. No rhonchi, wheezing, or crackles. No accessory muscle u se. Heart: Regular rate and rhythm. No extra sounds. Abdomen: Soft, nontender. Bowel sounds positive. No organomegaly. No masses or hernia. No rigidi ty or rebound. Extremities. No edema, clubbing, or cyanosis. Intact pulses. Skin: No rash. Neurologic: Alert, awake, oriented x3. No acute focal deficits appreciated. Investigations: BUN 32, creatinine 0.52 and hemoglobin is 7.6. Assessment/recommendations: 1.Atrial fibrillation with rapid ventricular response. Now, she converts to sinus. Continue amioda nette and metoprolol. She will need an anticoagulant as there is no concern about bleeding. Recommen d to start Eliquis at 5 mg twice a day. However, there is a significant anemia, probably needs to be worked up first. 2.Elevated troponin and that trended down. Recommend outpatient stress test. 3.Hypertension. Blood pressure is controlled. 4.Dyslipidemia. Continue statin. Cardiology will sign off on this case and to follow up in the office on an outpatient basis for stress test. /CARRINGTON Voice ID: [id number] Report ID: [id number]
[2024-01-21 07:26] LABS: Hematocrit 25.7 % (36.0-45.0); Hemoglobin 8.4 g/dL (12.0-15.0)
--- NOTE | 2024-01-21 08:21 | P.PN ---
Subjective Date of Service: 01/21/24 Chief Complaint: medical management; hypotension Subjective: Other (c/o weakness, eager to start PT. RRR, hypotension resolved.) <Radha Main - Last Filed: 01/21/24 08:15> Date of Service: 01/21/24 <JustussolLora C - Last Filed: 01/21/24 16:18> Review of Systems 10-point ROS is otherwise unremarkable General: Weakness, Other (eager to begin PT) <Radha Mainlen - Last Filed: 01/21/24 08:15> Physical Examination - Vital Signs Temperature: 97.9 F Blood Pressure: 198/72 (Hypotension resolved) Pulse: 76 Respirations: 20 Pulse Ox (%): 95 - Physical Exam General: Alert, In no apparent distress, Oriented x3 HEENT: Atraumatic, Normocephalic Neck: Supple Respiratory: Normal air movement Cardiovascular: Normal pulses, Regular rate/rhythm Capillary refill: <2 Seconds Gastrointestinal: Soft and benign Musculoskeletal: No clubbing, No swelling, Other (s/p left hip repair, + scds, +peripheral pulses. Pt eager to start PT) Integumentary: No rashes Neurological: Normal speech, Normal tone, Other (mild halt in diction flow) Lymphatics: No axilla or inguinal lymphadenopathy Urinary: Bentley catheter External genitalia: Deferred Rectal: Deferred - Studies Laboratory Data (last 24 hrs) 01/21/24 06:54 Hgb 8.4 L D Hct 25.7 L Medications List Reviewed: Yes <Radha Mainlen - Last Filed: 01/21/24 08:15> - Studies Laboratory Data (last 24 hrs) 01/21/24 06:54 Hgb 8.4 L D Hct 25.7 L <EvaLora Townsend - Last Filed: 01/21/24 16:18> Assessment And Plan - Plan - Problems (1) S/P total left hip arthroplasty Current Visit: Yes Status: Acute (2) Hypotension Current Visit: Yes Status: Acute (3) History of hypertension Current Visit: Yes Status: Acute (4) Hypothyroidism Current Visit: Yes Status: Acute (5) Osteoarthritis Current Visit: Yes Status: Acute Conclusions/ Impression: Plan: NVS to lto lower extremities - +peripheral pulses, + SCDs (01/21/24) Neuro status - alert, oriented, mild aphasia (01/21/24), eager to begin PT Continue with IV fluids, gently Monitor H&H Echocardiogram done and awaiting report (01/21/24) Cortisol levels Thyroid studies Antihypertensives - hypotension resolved PICC line placement; done (right upper arm) Possible vasopressor support, started on Midodrine (hypotension resolved. Antihypertensives utilized 01/21/24) GI and DVT prophylaxis <Radha Main - Last Filed: 01/21/24 08:15> - Plan Pt seen and examined. I agree with the note by the SPINDLE CARVER. Continue telemetry. F/u Echo report. Will continue midodrine for pressure support. Will continue PT, prn pain med and aspirin. <Lora Velasquez - Last Filed: 01/21/24 16:18>
[2024-01-21] MEDS: ENSURE HIGH PROTEIN 237 ML CAN PO SCH (20:32)
[2024-01-22 06:25] LABS: Hematocrit 25.1 % (36.0-45.0); Hemoglobin 8.3 g/dL (12.0-15.0)
[2024-01-22] MEDS ORDERED: HYDRALAZINE HCL 20 MG/ML VIAL IV PRN ×2 (13:07→13:16)
--- NOTE | 2024-01-22 14:02 | P.PN ---
Subjective Date of Service: 01/22/24 Chief Complaint: medical management; hypotension Subjective: Improving states she has no energy <Radha Main - Last Filed: 01/22/24 13:41> Date of Service: 01/22/24 <Lora Velasquez - Last Filed: 01/22/24 23:04> Review of Systems 10-point ROS is otherwise unremarkable General: Malaise <Radha Main - Last Filed: 01/22/24 13:41> Physical Examination - Vital Signs Temperature: 97.6 F Blood Pressure: 180/82 Pulse: 66 Respirations: 18 Pulse Ox (%): 89 - Physical Exam General: Alert, In no apparent distress, Oriented x3 HEENT: Atraumatic, Normocephalic Neck: Supple Respiratory: Normal air movement Cardiovascular: No edema, Regular rate/rhythm, Normal S1 S2 Capillary refill: <2 Seconds Gastrointestinal: Normal bowel sounds, Soft and benign Musculoskeletal: No clubbing Integumentary: No rashes Neurological: Normal speech, Normal affect, Abnormal strength Lymphatics: No axilla or inguinal lymphadenopathy External genitalia: Deferred Rectal: Deferred - Studies Laboratory Data (last 24 hrs) 01/22/24 05:57 Hgb 8.3 L Hct 25.1 L Medications List Reviewed: Yes <Radha Mainlen - Last Filed: 01/22/24 13:41> - Studies Laboratory Data (last 24 hrs) 01/22/24 05:57 Hgb 8.3 L Hct 25.1 L <Lora Velasquez - Last Filed: 01/22/24 23:04> Assessment And Plan - Plan - Problems (1) S/P total left hip arthroplasty Current Visit: Yes Status: Acute (2) Hypotension Current Visit: Yes Status: Acute (3) History of hypertension Current Visit: Yes Status: Acute (4) Hypothyroidism Current Visit: Yes Status: Acute (5) Osteoarthritis Current Visit: Yes Status: Acute Conclusions/ Impression: Plan: NVS to bilat lower extremities - +peripheral pulses, + SCDs (01/21/24) Neuro status - alert, oriented, mild aphasia (01/21/24), eager to begin PT, struggling a bit in PT, second to low sitting strength (01/22/24 - pt approved for IPR to admit tomorrow.) Continue with IV fluids, gently Monitor H&H Echocardiogram done and awaiting report (01/21/24), COMMENTS: 1. NORMAL LEFT VENTRICULAR SYSTOLIC FUNCTION, EJECTION FRACTION 60-65%, NORMAL WALL MOTION 2. NORMAL DIASTOLIC FUNCTION 3. MODERATE PULMONARY HYPERTENSION (RIGHT VENTRICULAR SYSTOLIC PRESSURE 55-60 mmHg Cortisol levels > 35, add antioxidant and mag Thyroid studies - TSH < 0.005, do not supplement, not great candidate for steroids now, continue to monitor Antihypertensives - hypotension resolved PICC line placement; done (right upper arm) hypotension resolved. Antihypertensives utilized 01/21/24, Amlodipine added for increased blood pressure management GI and DVT prophylaxis Discharge Plan: Transfer Plan to discharge in: 24 Hours <Radha Main - Last Filed: 01/22/24 13:41> - Plan Pt seen and examined. I agree iwth the note by the DIALYSIS EQUIPMENT TECHNICIAN. Pt is waiting for inpatient rehab placement. <Lora Velasquez - Last Filed: 01/22/24 23:04>
[2024-01-22] MEDS: AMLODIPINE 5 MG TAB PO SCH (14:38)
--- NOTE | 2024-01-22 14:59 | P.DS ---
Admission Date: 01/15/24 Discharge Date: 01/23/24 Reason for Admission: Hip arthroplasty, hypotension s/p anesthesia Consultations: Hospitalists/Dr. Kelly Procedures: left hip arthroplasty Brief History of Present Illness: Patient is a 73-year-old female who presented to the hospital for a total hip arthroplasty. The patient came into the hospital earlier today with a systolic blood pressure of 160. She received IV hydralazine as well as multiple medications prior to surgery. After surgery her blood pressure had decreased significantly with a systolic of 70s and a diastolic of 40s. Patient was given IV fluid boluses and her blood pressure has improved somewhat. She is awake and alert and oriented to person place and time. She has no other complaints except she is a little lethargic. At this time, we will continue with fluid boluses and hopefully as the anesthesia comes out of her system her blood pressure will stabilize. Patient will be admitted to the hospital for further evaluation for adrenal insufficiency as well as assess her ejection fraction with an echocardiogram. Monitor her renal function and her urine output closely. Patient will be admitted to the hospital for further evaluation. Will monitor her in ICU for the time being. Hospital Course: 01/15/24 Total left hip arthroplasty. S/P surgery hypotension. Hospitalist consult: Patient started on Levophed postoperatively for hypotension. We weaned it off after less than 12 hours. Patient went into atrial fibrillation with rapid ventricular response and had an elevated troponin and was seen by Cardiology. Patient was started on amiodarone drip that was weaned off after 24 hours as patient went back into a sinus rhythm. Cardiology said no further intervention at this time. Echocardiogram 1. NORMAL LEFT VENTRICULAR SYSTOLIC FUNCTION, EJECTION FRACTION 60-65%, NORMAL WALL MOTION 2. NORMAL DIASTOLIC FUNCTION 3. MODERATE PULMONARY HYPERTENSION (RIGHT VENTRICULAR SYSTOLIC PRESSURE 55-60 mmHg Cardiology recommended medical management. CT of the head was negative x 2 (01/16 and 01/18) Neuro status - alert, oriented, mild aphasia (01/21/24), eager to begin PT, struggling a bit in PT, second to low sitting strength Cortisol levels > 35, add antioxidant and magnesium for high cortisol levels Thyroid studies - TSH < 0.005, do not supplement, not great candidate for steroids now, continue to monitor Antihypertensives utilized 01/21/24, Amlodipine added for increased blood pressure management (01/22/24 - pt approved for IPR to admit tomorrow 01/23/24.) <Radha Main Eber - Last Filed: 01/23/24 08:18> Admission Date: 01/15/24 Discharge Date: 01/23/24 Hospital Course: Pt seen and examined. I agree with the note by the BRIDGE TENDER. Will transfer pt to inpatient rehab today. Ok to dc pt. <Lora Velasquez Cary - Last Filed: 01/23/24 10:40> Disposition: TRANSFER TO INPATIENT REHAB Discharge Condition: GOOD Vital Signs/Physical Exam: Temp Pulse Resp BP Pulse Ox 97.6 F 68 18 175/62 H 93 01/22/24 14:19 01/22/24 14:38 01/22/24 14:38 01/22/24 14:38 01/22/24 14:38 General: Alert, In no apparent distress, Oriented x3 HEENT: Atraumatic, Normocephalic Neck: Supple Respiratory: Normal air movement Cardiovascular: No edema, Normal pulses, Regular rate/rhythm, Normal S1 S2 Capillary refill: <2 Seconds Gastrointestinal: Soft and benign Musculoskeletal: No clubbing, Other (+ peripheral pulses bilaterally) Integumentary: No rashes Neurological: Normal speech, Normal tone, Normal affect Lymphatics: No axilla or inguinal lymphadenopathy External genitalia: Deferred Rectal: Deferred Laboratory Data at Discharge: WBC 14.60 thou/uL (4.3-10.9) H 01/16/24 05:00 Hgb 8.3 g/dL (12.0-15.0) L 01/22/24 05:57 Hct 25.1 % (36.0-45.0) L 01/22/24 05:57 Plt Count 256 thou/uL (152-406) 01/16/24 05:00 PT 11.6 SECONDS (9.4-12.5) 01/10/24 10:31 INR 1.04 01/10/24 10:31 APTT 36.9 SECONDS (24.3-36.9) 01/10/24 10:31 Sodium 145 mEq/L (136-145) 01/20/24 05:13 Potassium 4.0 mEq/L (3.5-5.1) 01/20/24 05:13 BUN 32 mg/dL (7-18) H 01/20/24 05:13 Creatinine 0.52 mg/dL (0.55-1.02) L 01/20/24 05:13 Glucose 102 mg/dL (74-106) 01/20/24 05:13 Magnesium 1.9 mg/dL (1.6-2.4) 01/16/24 05:00 Total Bilirubin < 0.2 mg/dL (0.2-1.0) L 01/16/24 05:00 AST 33 U/L (15-37) 01/16/24 05:00 ALT 15 U/L (13-56) 01/16/24 05:00 Alkaline Phosphatase 59 U/L (45-117) 01/16/24 05:00 <Main,Radha Eber - Last Filed: 01/23/24 08:18> Vital Signs/Physical Exam: Temp Pulse Resp BP Pulse Ox 96.9 F 52 15 131/46 L 96 01/23/24 08:00 01/23/24 09:00 01/23/24 08:00 01/23/24 09:00 01/23/24 08:00 Laboratory Data at Discharge: WBC 14.60 thou/uL (4.3-10.9) H 01/16/24 05:00 Hgb 8.3 g/dL (12.0-15.0) L 01/22/24 05:57 Hct 25.1 % (36.0-45.0) L 01/22/24 05:57 Plt Count 256 thou/uL (152-406) 01/16/24 05:00 PT 11.6 SECONDS (9.4-12.5) 01/10/24 10:31 INR 1.04 01/10/24 10:31 APTT 36.9 SECONDS (24.3-36.9) 01/10/24 10:31 Sodium 145 mEq/L (136-145) 01/20/24 05:13 Potassium 4.0 mEq/L (3.5-5.1) 01/20/24 05:13 BUN 32 mg/dL (7-18) H 01/20/24 05:13 Creatinine 0.52 mg/dL (0.55-1.02) L 01/20/24 05:13 Glucose 102 mg/dL (74-106) 01/20/24 05:13 Magnesium 1.9 mg/dL (1.6-2.4) 01/16/24 05:00 Total Bilirubin < 0.2 mg/dL (0.2-1.0) L 01/16/24 05:00 AST 33 U/L (15-37) 01/16/24 05:00 ALT 15 U/L (13-56) 01/16/24 05:00 Alkaline Phosphatase 59 U/L (45-117) 01/16/24 05:00 <Lora Velasquez - Last Filed: 01/23/24 10:40> Diet: ADA Activity: per PT/Rehab <Jose DavidRadha Eber - Last Filed: 01/23/24 08:18> <Lora Velasquez - Last Filed: 01/23/24 10:40> Home Medications: Celecoxib [Celebrex] 200 mg PO BID 08/31/23 Enalapril Maleate 20 mg PO DAILY 08/31/23 Hydrocodone Bit/Acetaminophen [Hydrocodon-Acetaminophn 10-325] 0.5 - 1 tab PO Q6HP PRN 08/31/23 Levothyroxine Sodium [Synthroid] 150 mcg PO DAILY 08/31/23 Liothyronine Sodium [Cytomel] 5 mcg PO DAILY 08/31/23 Metoprolol Succinate [Toprol Xl*] 50 mg PO DAILY 08/31/23 Oxybutynin Chloride [Oxybutynin Chloride ER] 2 tab PO TID 08/31/23 Risedronate Sodium [Actonel*] 35 mg PO EVERY 7TH DAY 08/31/23 Sertraline [Zoloft*] 25 mg PO BEDTIME 08/31/23 gemfibroziL [Lopid*] 600 mg PO DAILY 08/31/23 Atorvastatin Calcium [Lipitor*] 20 mg PO BEDTIME 01/10/24 Metformin HCl [Glucophage*] 850 mg PO DAILY WITH BREAKFAST 01/10/24 Amiodarone HCl [Cordarone*] 200 mg PO BID #60 tab 01/23/24 Amlodipine [Norvasc*] 5 mg PO DAILY #30 tab 01/23/24 Aspirin [Aspirin EC 81 MG] 81 mg PO DAILY #90 tab 01/23/24 Losartan Potassium [Cozaar*] 50 mg PO BID 01/23/24 Magnesium Oxide [Mag 0X*] 400 mg PO BID tab 01/23/24 Melatonin 10 mg PO BEDTIME PRN PRN 01/23/24 icosapent ethyL [Icosapent Ethyl] 0.5 gm PO DAILY #30 cap 01/23/24 New Medications: Aspirin [Aspirin EC 81 MG] 81 mg PO DAILY #90 tab Amiodarone HCl [Cordarone*] 200 mg PO BID #60 tab icosapent ethyL [Icosapent Ethyl] 0.5 gm PO DAILY #30 cap Amlodipine [Norvasc*] 5 mg PO DAILY #30 tab Physician Discharge Instructions: 01/15/24 Total left hip arthroplasty. S/P surgery hypotension. Hospitalist consult: Patient started on Levophed postoperatively for hypotension. We weaned it off after less than 12 hours. Patient went into atrial fibrillation with rapid ventricular response and had an elevated troponin and was seen by Cardiology. Patient was started on amiodarone drip that was weaned off after 24 hours as patient went back into a sinus rhythm. Cardiology said no further intervention at this time. Echocardiogram 1. NORMAL LEFT VENTRICULAR SYSTOLIC FUNCTION, EJECTION FRACTION 60-65%, NORMAL WALL MOTION 2. NORMAL DIASTOLIC FUNCTION 3. MODERATE PULMONARY HYPERTENSION (RIGHT VENTRICULAR SYSTOLIC PRESSURE 55-60 mmHg Cardiology recommended medical management. CT of the head was negative x 2 (01/16 and 01/18) Neuro status - alert, oriented, mild aphasia (01/21/24), eager to begin PT, struggling a bit in PT, second to low sitting strength Cortisol levels > 35, add antioxidant and magnesium for high cortisol levels Thyroid studies - TSH < 0.005, do not supplement, not great candidate for steroids now, continue to monitor Antihypertensives utilized 01/21/24, Amlodipine added for increased blood pressure management (01/22/24 - pt approved for IPR to admit tomorrow 01/23/24.) Await TSH prior to restarting thyroid supplementation. Continue Amiodarone 200mg po BID. Continue Amlodipine 5mg po daily. Continue other home medications as directed. Followup: Neel Doyle MD [ASSOCIATE-ACTIVE - CAN ADMIT] - Jackson Llanos MD [Primary Care Provider] - Eben Kelly MD [ACTIVE - CAN ADMIT] -
[2024-01-22] MEDS: MAGNESIUM OXIDE 400 MG TAB PO SCH (20:50)
[2024-01-22] MEDS: MELATONIN 5 MG TABLET PO PRN (22:24)
[2024-01-23 05:21] VITALS: TEMP 96.9
[2024-01-23] MEDS: DOCOSAHEXANOIC AC/EPA 1000 MG PO SCH (09:10)
[2024-01-23 09:11] VITALS: BP 131/46
[2024-01-23 09:54] VITALS: O2SAT 100
[2024-01-25] MEDS ORDERED: RISEDRONATE SODIUM 35 MG PO SCH (09:00)
== END 2024-01-23 10:30 | DRG 469 ==
LOC: OR 06:28 → ERHOLD 09:19 → 3RD-ICU 12:19 → 2ND 01-18 14:44
PROVIDERS: ADMIT Orthopaedic Surgery; ATTEND Hospitalist
PROC: 0SRB03Z Replacement of Left Hip Joint with Ceramic Synthetic Substitute, Open Approach (ICD-10-PCS; principal; 2024-01-15 07:00)
PROC: 02HV33Z Insertion of Infusion Device into Superior Vena Cava, Percutaneous Approach (ICD-10-PCS; 2024-01-16)
PROC: 3E043XZ Introduction of Vasopressor into Central Vein, Percutaneous Approach (ICD-10-PCS; 2024-01-16)
DX: M16.12 Unilateral primary osteoarthritis, left hip (principal); I21.A1 Myocardial infarction type 2; R57.1 Hypovolemic shock; R47.01 Aphasia; I10 Essential (primary) hypertension; E78.5 Hyperlipidemia, unspecified; E11.9 Type 2 diabetes mellitus without complications; E03.9 Hypothyroidism, unspecified; I95.9 Hypotension, unspecified; I48.91 Unspecified atrial fibrillation; I95.81 Postprocedural hypotension; Z79.82 Long term (current) use of aspirin; Z79.84 Long term (current) use of oral hypoglycemic drugs; Z86.73 Personal history of transient ischemic attack (TIA), and cerebral infarction without residual deficits; Z79.890 Hormone replacement therapy; Z87.891 Personal history of nicotine dependence; Z79.899 Other long term (current) drug therapy
CPT/HCPCS: 36415; 36569; 70450; 71045; 80048; 80053; 81003; 82533; 82947; 83735; 84439; 84443; 84484; 85014; 85018; 85025; 85610; 85730; 86850; 86900; 86901; 88304; 88305; 88311; 92526; 92610; 93005; 93306; 97110; 97161; 97165; 97530; C1776; J0282; J0360; J0690; J1100; J1160; J1650; J1720; J2001; J2250; J2405; J2704; J3010; J7030; J7060; P9047

== ENCOUNTER 2024-01-23 10:30 | Inpatient (IN) | payer OTHER ==
--- OUTSIDE RECORDS SUMMARY | 2024-01-23 10:38 | XMS REPORT | Continuity of Care Document ---
Author Name Unknown Address [address] [place] [address] [facility] thconnect Address [address] [place] [address] Care Team Providers Care Neighborhood Planner Name Role Phone ERIC BUTCHER Primary Care Physician Jason morillo RADIOLOGY Attending Clinician Unavailable Radiology Attending Clinician Unavailable Cayden Barraza Cardiology Attending Clinician Unavailable ERIC BUTCHER Admitting Clinician Unavailab le KNOW, DOES_NOT Admitting Clinician Unavailable Payers Payer Name Policy Type Policy Number Effective Date Expirati on Date Source [facility] [employer] [place] [id number] 2017 00:00:00 Allergies, Adverse Reactions, Alerts Allergy Name Allergy Type Status Severity Reaction(s) Onset Date Inactive Date Treating Clinician Comments Source No Known Allergie s DA Active U 07-05 00:00: 00 [facility] NO KNOWN ALLERGIE S Drug Class Active [facility] Social History Social Habit Start Date Stop Date Quantity Comments Source Sexual orientation U [facility] Sex Assigned At 1950 00:00:00 1950 00:00:00 [facility] Smoking Status Start Date Stop Date Source Tobacco smoking consumption unknown [facility] Encounters Start Date/Time End Date/Time Encounter Type Admission Type Attending Clinicians Care Facility Care Department Encounter ID Source 2023-09-17 08:47:59 2023-09-17 23:59:00 Outpatient R RADIOLOGY [facility] [id number] [facility] 2023-09-17 08:45:00 2023-09-17 23:59:00 Hospital Encounter Radiology [facility] [id number] [facility] 2023-07-07 06:55:00 2023-07-07 06:55:00 Outpatient Cayden Mayers [facility] CATH [id number] [facility] Results Test Description Test Time Test Comments Results Result Co mments Source COMPREHENSIVE METABOLIC [id number] 09:24:00* Test Item Value Reference Range Interpretation [...] = LDL) 96 MG/DL 0-129 N <100 [id number] 0 - 129 NEAR OPTIMAL/ABOVE [id number] - 159 [id number] - 189 HIGH>OR= 190 VERY HIGHNOTE THAT GUIDELINES ARE PROVIDED BY NATIONAL CHOLESTEROLEDUCATION PROGRAM ADULT TREATMENT PANEL III LDL/HDL (test code = LDL/HDL) 1.81 Ratio See_Comment N [Automated messa ge] The system which generated this result transmitted reference range: 1.48-3.22 Avg. The reference range was not used to interpret this result as normal/abnormal. PROTHROMBIN [id number] 07:52:00* Test Item Value Reference Range Interpretation [...] Infarction (to prevent recurrent infarct). CBC W/AUTO [id number] 07:47:00* Test Item Value Reference Range Interpretation [...] Notes Date/Time Note Provider Source 2023-07-07 10:42:00 [id number] [address] PATIENT NAME: PUJA JEAN ADMIT DATE: 07/07/23 ACCOUNT NO: [id number] ROOM NO: AGE: 72 REPORT TYPE: CARDIAC CATHETERIZATION REPORT SEX: F ADMITTING PHYSICIAN: ATTENDING PHYSICIAN: Cayden Barraza MD PROCEDURE DATE: 07/07/2023 SCIENTIFIC LINGUIST: Cayden Barraza MD INDICATION FOR THE PROCEDURE: [...] femoral artery area for local anesthesia. A 6-Armenian sheath was placed in the right common [...] Date Transcribed: 07/07/2023 12:23:29 QUINTIN/ELIZABETH Teague #: [id number] Receipt ID: [id number] Authenticated by Cayden Barraza MD On 07/08/2023 08:09:19 AM at 0809 PATIENT NAME: PUJA JEAN [facility] 2023-07-07 07:34:00 [id number] [address] PATIENT NAME: PUJA JEAN ADMIT DATE: 07/07/23 ACCOUNT NO: [id number] ROOM NO: AGE: 72 REPORT TYPE: eELECTROCARDIOGRAM SEX: F ADMITTING PHYSICIAN: ATTENDING PHYSICIAN: Cayden Barraza MD Order: [id number] Test Reason : Pre Heart Cath Test [...] BARRAZA at 0825 PATIENT NAME: PUJA JEAN [facility] 2023-07-06 07:12:00 [phone] [address] PATIENT NAME: PUJA JEAN ADMIT DATE: ACCOUNT NO: [id number] ROOM NO: AGE: 72 REPORT TYPE: HISTORY AND PHYSICAL SEX: F ADMITTING PHYSICIAN: ATTENDING PHYSICIAN: Cayden Barraza MD Cardiology PATIENT NAME: PUJA JEAN ADMIT DATE:07/07/2023 ADMISSION DATE: 07/07/2023 07:30:00 ADMISSION HISTORY AND PHYSICAL SCIENTIFIC LINGUIST: Cayden Barraza MD. REASON FOR ADMISSION: Ischemia, [...] Date Transcribed: 07/06/2023 07:40:00 QUINTIN/ANIBAL/ALEX Receipt ID: [id number] Authenticated and Edited by Cayden Barraza MD On 07/06/23 4:00:29 PM at 0402 PATIENT NAME: PUJA JEAN [facility] [place]
[2024-01-23] MEDS ORDERED: HYDROCODONE/APAP 10/325 TAB PO PRN (12:26)
[2024-01-23] MEDS ORDERED: MELATONIN 5 MG TABLET PO PRN (12:50)
[2024-01-23] MEDS ORDERED: DOCUSATE NA/SENNA CONC 1 TAB PO PRN (13:22)
[2024-01-23 15:20] LABS: Anion Gap 6.1 mEq/L (5.0-15.0); Magnesium 1.7 mg/dL (1.6-2.4); Potassium 4.1 mEq/L (3.5-5.1); Prealbumin 12.7 mg/dL (20-40)
[2024-01-23] MEDS: CYANOCOBALAMIN 1000MCG/ML INJ IM ONE (15:22)
[2024-01-23] MEDS: LIDOCAINE 4% PATCH TOP SCH (15:23)
[2024-01-23 16:40] LABS: Absolute Eosinophils 0.3 K/uL (0-0.5); Absolute Lymphocytes (CBC) 1.3 K/uL (0.7-4.9); Absolute Monocytes 1.7 K/uL (0.1-1.3); Absolute Neutrophil 18.9 K/uL (1.8-8.0); Basophils % 0.2 % (0-1.3); Eosinophils % 1.3 % (0-4.4); Hematocrit 26.1 % (36.0-45.0); Hemoglobin 8.3 g/dL (12.0-15.0); MCHC 31.9 g/dL (32.0-36.0); MCV 93.8 fL (80-100); MPV 8.6 fL (7.6-11.3); Monocytes % 7.5 % (3.3-12.3); Nucleated RBC Absolute Count 0.1 (0-0); Nucleated Red Blood Cells % 0.3 % (0-0); Platelets 443 thou/uL (152-406); RBC Red Blood Cell Count 2.79 M/uL (3.86-4.86)
[2024-01-23 17:20] LABS: Blood Morphology Comment NOT SEEN (NOT SEEN); Platelet Estimate ADEQ; White Blood Cell Scan OK (OK)
[2024-01-23] MEDS: MAGNESIUM OXIDE 400 MG TAB PO SCH (19:02)
[2024-01-23] MEDS: GABAPENTIN 100 MG CAP PO SCH (19:02)
[2024-01-23] MEDS: AMIODARONE HCL 200 MG TAB PO SCH (19:02)
[2024-01-23] MEDS: CELECOXIB 100 MG CAPSULE PO SCH (19:02)
[2024-01-23] MEDS: LOSARTAN POTASSIUM 50 MG TABLET PO SCH (19:02)
[2024-01-23] MEDS: ATORVASTATIN 20 MG TAB PO SCH (19:04)
[2024-01-23 20:06] LABS: Specific Gravity 1.012 (1.005-1.030); Sqamous Epithelial None Seen /HPF (None Seen); Urine Bacteria <20 /HPF (<20); Urine Bilirubin NEGATIVE (Negative); Urine Blood 3+ (Negative); Urine Clarity Turbid (Clear); Urine Color Light-Yellow (Yellow); Urine Culture Reflex Order REFLEXED; Urine Glucose NEGATIVE (Negative); Urine Ketones NEGATIVE (Negative); Urine Micro Reflex YN NO BILL MICROSCOPIC; Urine Nitrite 1+ (Negative); Urine Protein NEGATIVE (Negative); Urine RBC 21-50 /HPF (None Seen); Urine Urobilinogen Normal (Normal); Urine WBC 20-50 /HPF (<5); Urine pH 6.5 (5.0-7.0)
--- NOTE | 2024-01-23 22:15 | RAD REPORT ---
EXAM DESCRIPTION: Travis Single View01/23/2024 9:09 pm CLINICAL HISTORY: Leukocytosis COMPARISON: January 16, 2024 FINDINGS: Mild to moderate right basilar opacities Equivocal mild left basilar opacities Heart is normal size. PICC line place IMPRESSION: Mild to moderate right basilar opacities probably to pneumonia There may mild left basilar lung opacities as well
--- NOTE | 2024-01-24 01:39 | HP ---
Date of Admission: 01/23/2024 Time Of Service: 1 p.m. Chief Complaint: "I had left hip surgery." History Of Present Illness: Ms. Gold is a 73-year-old patient, who comes to inpatient rehabilitatio n after left total hip arthroplasty, which her postoperative course was complicated by hypotension, f or which she was admitted to ICU. She had chest imaging showing an infiltrate versus an atelectasis of the right lung and blood work indicated possible type 2 myocardial infarction. She was treated me dically, had intravenous fluids, and was managed by the Cardiology Service. She had decreasing oxyge n saturation requiring supplementation, elevated white blood cell count, for which she received treat ment for infection. Electrolytes, glucose, BUN also were followed. She was evaluated by Physical Th erapy, Occupational Therapy, Speech Therapy Service, and found to be at a maximum assistance level fo r transfers, for activities of daily living, and for mobilization. She had mild to moderate dysphagi a. As a result of her recent surgery and complications postoperatively along with the need for medic al management, she is now at a maximum level for supine to sit transfers as well and for ADLs and she is now admitted to the inpatient rehabilitation unit for physical, occupational, and speech therapy along with daily physician evaluation and management to help her return to her prior level of functio ranulfo and decrease the risk of rehospitalization. Past Medical History: Hypertension, dyslipidemia, hypothyroidism, diabetes mellitus type 2, atrial f ibrillation, osteoarthritis, cirrhosis. She has had C-sections twice and sinus surgery. Allergies: NO KNOWN DRUG ALLERGIES. X-ray/imaging: Chest x-ray on 01/16/2024 shows mild atelectasis versus infiltrate in the right media l lung base. An echocardiogram on 01/16/2024 shows normal left ventricular systolic function. Eject ion fraction 65%. Normal wall motion. Normal systolic function. Moderate pulmonary hypertension. Right ventricular systolic pressure elevated to 55% to 60%. EKG on 01/16 showed atrial fibrillation with rapid ventricular response, lateral infarct, age undetermined, abnormal ECG. Current Medications: For atrial fibrillation, amiodarone 200 mg twice daily, atorvastatin 20 mg at b edtime, Celebrex 200 mg twice daily, vitamin B12 shots 1 shot given once, Senokot and docusate 2 twic e daily, hydrocodone 10/325 every 6 hours as needed, gabapentin 100 mg twice daily, Vasotec 20 mg ronald ly, levothyroxine 0.15 mg daily, lidocaine patch apply topically daily, losartan 50 mg twice daily, m agnesium oxide 400 mg twice daily, melatonin 10 mg at bedtime. Laboratory Studies: White blood cell count was elevated at 22.2, hemoglobin 8.3, platelets 443. Sod ium 140, potassium 4.1, chloride 106, carbon dioxide 32, BUN 21, creatinine 0.61, glucose 119, calciu m 9.5, magnesium 1.7, albumin 2.3, prealbumin 12.7. Urinalysis shows 1+ nitrites, 500 esterase, red blood cells 21 to 50, white blood cells 20 to 50, turbid clarity. Microbiology shows cultures are pe nding. Please note, she will have a chest x-ray to rule out pneumonia. She has urinalysis pending. Family History: Noncontributory. Social History: No alcohol, tobacco, or IV drug use. Lives with family. Review of Systems: Some mild shortness of breath, some slight pain in the left hip where there is arthroplasty. Mild sw elling in the lower extremities. No jose fevers or chills and mild myalgias and arthralgias. No ra sh. No active psychiatric issues. Current Level Of Functioning: Supervision for eating, moderate assistance for oral hygiene, maximal assistance for toilet hygiene and bathing along with upper and lower body dressing. Maximal assistan ce for donning and doffing footwear. For rolling pwcm-ga-ksjge, sitting to lying and lying to sittin g on side of bed, all maximum assistance, sit to stand maximum assistance. Transfer from bed to [employer] and chair to toilet maximal assistance. She ambulated just 1 foot with a rolling walker and rhys l assistance. Physical Examination: Vital Signs: Blood pressure elevated to 188/78, pulse of 61, respiratory rate 16, temperature 97.8, oxygen saturation 95%, weight 128 pounds, height 63 inches. General: Ms. Gold again is in her hospital bed awaiting therapy. HEENT: She appears normocephalic, atraumatic. Sclerae anicteric. Chest: Decreased air movement bilaterally. Abdomen: Soft. Extremities: Show some postoperative expected changes in the left lower extremity, but no jose viet a. No cyanosis. No clubbing. She has some left-sided give-way because of the recent surgery and di ffuse weakness. Rehabilitation And Medical Assessment And Plan: Ms. Gold is admitted inpatient rehabilitation unit with impairment category 08, orthopedic, lower extremity joint replacement. Her impairment group cod e is 08.51, status post unilateral hip replacement. Etiologic diagnosis, primary osteoarthritis and osteoporosis of the left hip. Her comorbid; atrial fibrillation, decreased mobility, decreased physi daija functioning, dyslipidemia, hypotension, hypertension, hypothyroidism, myocardial infarction, oste oarthritis. Also has significantly elevated white blood cell count and low hemoglobin, hematocrit, a nd moderate malnutrition. Plan: 1.She will have physical, occupational, and speech therapy for 3.5 hours, 5 of 7 days. 2.Chest x-ray as noted without ongoing pneumonia. 3.We will continue to follow her urinalysis for cultures and sensitivities and we will start likely Rocephin or appropriate antibiotic. 4.For atrial fibrillation, we will continue with rate reduction with amiodarone. We will continue w ith Eliquis 2.5 mg twice daily for stroke and DVT risk reduction, Tylenol, enteric-coated aspirin jt l be discontinued and Eliquis 5 mg twice daily used for DVT and stroke risk reduction. 5.Continue atorvastatin 20 mg at night for dyslipidemia. Continue Celebrex for reducing inflammatio n in the joints. Continue gabapentin 100 mg twice daily for neuropathic pain. We will work on kulwinder zhang back her [place] which is currently 10/325 to 5/325 dosage. Continue levothyroxine for hypothyroidi sm, lidocaine patch for pain, magnesium for muscle spasms, melatonin for insomnia. Comorbidities That Are Impacting Rehabilitation: Her atrial fibrillation does put her at risk of str joe which is probably increased risk over general population. She is on the Eliquis 5 mg twice daily . Did stop the aspirin to reduce the risk of excessive bleeding. She has potential pneumonia with v yi elevated white blood cell count. Chest x-ray being done. We will follow her urinalysis as that is also a potential source for the elevated white blood cell count, high risk of falling. We will of course have fall precautions and gait belt, chair alarm, bed alarm as appropriate. Rehab Specific Plan: 1.Ms. Gold will have physical, occupational, and speech therapy for 3.5 hours, 5 of 7 days, to impr ove her ability to transfer from bed to chair, to the toilet, to the shower, perform toileting and sh owering, perform upper and lower body dressing, donning/doffing footwear, and performing activities o f daily living. 2.She will be able to ambulate more than household distances, go up and down at least 10 steps, and mobilize a wheelchair more than household distances. Ms. Gold has a good understanding of the process of admission to the inpatient rehabilitation facili , how she will benefit from physical, occupational, and speech therapy. She will have 24 hours a d ay, 7 days a week skilled rehabilitation nursing, daily physician evaluation and management, social s ervices evaluation and management for discharge planning, home equipment, and followup in terms of th erapy and physician followup. If need be, additional help will be sought from the ID Service, Hospit alist Service, and Cardiology Service. Barriers To Discharge: At this point, given the risk of stroke with atrial fibrillation and the risk of pneumonia, they did prolong her hospital stay and she may require higher level of care to the acu te care floor or in the ICU, but that will be closely watched for and mitigated against. Length Of Stay: About 2 weeks. Disposition: Home with family. Prognosis: Good. Rehab Specific Goals: 1.Become independent with upper and lower body dressing, donning and doffing of footwear. 2.Independently perform activities of daily living. 3.Independently ambulate 250 feet with a rolling walker. 4.Independently propel a wheelchair 250 feet. 5.Independently go up and down 10 steps. 6.Independently perform cognitive functioning. The above goals were reviewed with Ms. Gold and she is in agreement. By signing this document, I acknowledge I personally performed a full physical examination on Ms. Dale yusuf no later than 24 hours after her admission to the inpatient rehabilitation facility and determined that she is able to tolerate the above course of treatment at an intensive level for reasonable ashlie od of time. A detailed individualized plan of care for her will be completed by hospital day 4 based on the preadmission screen, history and physical, and therapy evaluations. JULIEN Voice ID: [id number]
[2024-01-24] MEDS: LEVOTHYROXINE SOD 0.075 MG TAB PO SCH (07:22)
[2024-01-24] MEDS: APIXABAN 5 MG TABLET PO SCH (07:50)
[2024-01-24] MEDS ORDERED: LIDOCAINE 4% PATCH TOP SCH (08:00)
[2024-01-24] MEDS ORDERED: ASPIRIN EC 81 MG TAB PO SCH (08:00)
[2024-01-24] MEDS: ENALAPRIL 10 MG TAB PO SCH (10:21)
[2024-01-24] MEDS: icosapent ethyL 1 GM CAP PO SCH (10:22)
[2024-01-24 10:41] VITALS: BMI 22.6
[2024-01-24] MEDS: AMLODIPINE 5 MG TAB PO SCH (11:18)
[2024-01-24] MEDS: CEFTRIAXONE 1,000 MG in NA CHLORIDE 0.9% 50 ML IVPB SCH (16:04)
[2024-01-24] MEDS: AZITHROMYCIN IV 500 MG in NA CHLORIDE 0.9% 250 ML IVPB SCH (16:21)
[2024-01-24] MEDS: CRANBERRY FRUIT EXTRACT 200 MG CAP PO SCH (18:37)
[2024-01-24] MEDS: ENSURE ENLIVE 237 ML CAN PO SCH (18:38)
[2024-01-24] MEDS ORDERED: levoFLOXacin 500 MG TAB PO SCH (20:00)
[2024-01-24] MEDS: DOCUSATE NA/SENNA CONC 1 TAB PO SCH (20:22)
[2024-01-24] MEDS: MELATONIN 5 MG TABLET PO SCH (20:22)
--- NOTE | 2024-01-24 22:17 | PN ---
Date of Progress Note: 01/24/2024 Time Of Service: 1:15 p.m. Subjective: Ms. Gold is resting comfortably in bed. No significant distress. She did have first l eft hip replacement for primary osteoarthritis of the left hip. She does report some mild muscle spa sms and mild pain, but the pain is mitigated by pain patch and neuromodulator as well. Objective: Mild myalgias and arthralgias in the left lower extremity and hip. Otherwise, no fevers, chills, nausea, vomiting. No rash. No psychiatric complaints. Physical Examination: Vital Signs: Blood pressure 138/61, pulse 67, respiratory rate of 16, temperature 97.8, oxygen satur ation 94%. General: Ms. Gold is resting comfortably. She is in no significant distress. HEENT: She is normocephalic, atraumatic. Sclerae anicteric. Oropharynx pink and moist. Neck: Supple. Chest: Clear. Extremities: No significant edema or cyanosis in the extremities. Laboratory Studies: White blood cell count was elevated to 22.2 with 85% neutrophils, lymphocytes 6. Prealbumin low at 12.7, glucose 119, BUN 21, creatinine 0.61, sodium 140, potassium 4.1, chloride 1 06, carbon dioxide 32. Her urinalysis from the showed 3+ blood, 1+ nitrites, 500 esterases, red blood cells 21 to 50, white blood cells 20 to 50, turbid clarity. Medications: [place] scheduled 5/325 every morning because of some pain during the day. She is on Cor darone 200 mg twice daily, Norvasc 5 mg daily, Eliquis 5 mg twice daily, Lipitor 20 mg at bedtime. F or the potential pneumonia, for which the white blood cell count was up and actually an x-ray was don e that suggests pneumonia, she is on Rocephin 1000 mg IV daily and azithromycin 500 mg daily. She diallo s Celebrex 200 mg twice daily, Vasotec 20 mg daily, ferrous sulfate 325 mg daily, gabapentin 100 mg t wice daily, Synthroid 0.15 mg daily, lidocaine patch is applied to the surgical site on the left hip, HemocytePlus 1 tablet daily, Ensure Enlive 237 mL twice daily, Senokot-S 2 tablets at bedtime. Progress Made With Physical, Occupational, And Speech Therapy: With physical therapy, today, she was able to do bed mobility with minimum assistance. Gntff-pi-qnddv transfers, maximum assistance. Mob ilized wheelchair 250 feet with contact guard assistance. She ambulated 15 feet, 8 feet, 5 feet, max imum assistance. Did have some trouble advancing, especially the left lower extremity. Regarding oc cupational therapy, she did stand up for dressing, used grab bars with minimum assistance. She did u se a sock aid, minimum assistance to don and doff socks. Partial assistance to complete tasks due to poor balance and poor strength. She had a speech and language evaluation and was at independence fo r auditory comprehension. From independent down to minimum assistance for verbal expression. Intell igibility was 100%. Ms. Gold began to make fair progress overall with physical, occupational, and speech therapy. She i s somewhat limited by the pain that she has and pain medications have been adjusted with scheduling t he [place] 5/325 in the morning. She has neuromodulator, gabapentin on board. Muscle relaxants used s paringly. She also has magnesium. She has DVT prophylaxis and stroke risk reduction with Eliquis du e to atrial fibrillation. She has Synthroid for hypothyroidism, Cozaar for blood pressure management . Please note, Ms. Gold is admitted to the inpatient rehabilitation unit with left hip osteoarthritis, status post hip replacement. She has atrial fibrillation, decreased mobility, decreased physical fu nctioning, hypertension, dyslipidemia, hypothyroidism, myocardial infarction. Plan: 1.She will continue with physical, occupational, and speech therapy 3.5 hours, 5 of 7 days. 2.Note, the chest x-ray did suggest pneumonia and she is on antibiotics for pneumonia. She has atri al fibrillation, mitigated with Eliquis. She is on enteric-coated aspirin for stroke risk reduction. She will continue all other medications as indicated. Comorbidities That Are Impacting Rehabilitation: Given the high-dose Eliquis, she is at risk of blee ding. Fall precautions adhered to at all times, especially if she is to impact a noncompressible sit e. The pneumonia also is on diagnosis with high white count and positive chest x-ray. She is on ant ibiotics, continuing IV for now. We will switch to oral after she has completed 5 days of antibiotic s. STACI/CARRINGTON Voice ID: [id number] Report ID: [id number]
[2024-01-25 07:34] LABS: Absolute Eosinophils 0.4 K/uL (0-0.5); Absolute Lymphocytes (CBC) 1.5 K/uL (0.7-4.9); Absolute Monocytes 0.9 K/uL (0.1-1.3); Absolute Neutrophil 15.2 K/uL (1.8-8.0); Basophils % 0.1 % (0-1.3); Eosinophils % 2.1 % (0-4.4); Hematocrit 29.6 % (36.0-45.0); Hemoglobin 9.7 g/dL (12.0-15.0); Lymphocytes % 8.4 % (15.3-44.8); MCH 30.3 pg (27.0-35.0); MCHC 32.7 g/dL (32.0-36.0); MCV 92.6 fL (80-100); MPV 8.3 fL (7.6-11.3); Monocytes % 4.7 % (3.3-12.3); Neutrophils % 84.7 % (41.7-73.7); Nucleated Red Blood Cells % 0.1 % (0-0); Platelets 499 thou/uL (152-406); Red Cell Distribution Width 14.2 % (12.1-15.2)
[2024-01-25] MEDS: FE SULF/FA/VIT B COMP & C TAB PO SCH (08:11)
[2024-01-25] MEDS: FERROUS SULFATE 325 MG TAB PO SCH (08:13)
[2024-01-25] MEDS: HYDROCODONE/APAP 5/325 MG TAB PO SCH (08:14)
[2024-01-25 08:39] LABS: Anisocytosis 1+; Basophilic Stippling 1+; Blood Morphology Comment NOTED (NOT SEEN); Differential Total Cells Count 100; Eosinophils 4 % (0-3); Lymphocytes 5 % (15-42); Macrocytosis SLIGHT; Monocytes 5 % (0-10); Nucleated Red Blood Cells 2 /100WBC; Platelet Estimate ADEQ; Polychromasia SLIGHT; Segmented Neutrophils 86 % (40-80)
--- NOTE | 2024-01-25 13:22 | P.RH.PN ---
Estimated Length of Stay: 15 Expected Discharge Date: 02/06/24 Discharge Disposition Plan: Home Family Support: Yes Custodial Goal: Mobility, Transfers, Self Care Vital Signs: Last Vital Signs Temp 97 F 01/25/24 08:32 Pulse 72 01/25/24 11:46 Resp 18 01/25/24 09:14 BP 178/72 H 01/25/24 11:46 Pulse Ox 92 01/25/24 09:14 Laboratory: Laboratory Last Values WBC 18.00 thou/uL (4.3-10.9) H 01/25/24 07:15 RBC 3.20 M/uL (3.86-4.86) L 01/25/24 07:15 Hgb 9.7 g/dL (12.0-15.0) L 01/25/24 07:15 Hct 29.6 % (36.0-45.0) L 01/25/24 07:15 MCV 92.6 fL (80-100) 01/25/24 07:15 MCH 30.3 pg (27.0-35.0) 01/25/24 07:15 MCHC 32.7 g/dL (32.0-36.0) 01/25/24 07:15 RDW 14.2 % (12.1-15.2) 01/25/24 07:15 Plt Count 499 thou/uL (152-406) H 01/25/24 07:15 MPV 8.3 fL (7.6-11.3) 01/25/24 07:15 Neutrophils % 84.7 % (41.7-73.7) H 01/25/24 07:15 Lymphocytes % 8.4 % (15.3-44.8) L 01/25/24 07:15 Monocytes % 4.7 % (3.3-12.3) 01/25/24 07:15 Eosinophils % 2.1 % (0-4.4) 01/25/24 07:15 Basophils % 0.1 % (0-1.3) 01/25/24 07:15 Absolute Neutrophils 15.2 K/uL (1.8-8.0) H 01/25/24 07:15 Segmented Neutrophils 86 % (40-80) H 01/25/24 07:15 Absolute Lymphocytes 1.5 K/uL (0.7-4.9) 01/25/24 07:15 Lymphocytes 5 % (15-42) L 01/25/24 07:15 Monocytes 5 % (0-10) 01/25/24 07:15 Absolute Monocytes 0.9 K/uL (0.1-1.3) 01/25/24 07:15 Eosinophils 4 % (0-3) H 01/25/24 07:15 Absolute Eosinophils 0.4 K/uL (0-0.5) 01/25/24 07:15 Absolute Basophils 0.0 K/uL (0-0.5) 01/25/24 07:15 Nucleated RBCs 2 /100WBC 01/25/24 07:15 Platelet Estimate Adeq 01/25/24 07:15 Polychromasia Slight 01/25/24 07:15 Basophilic Stippling 1+ 01/25/24 07:15 Anisocytosis 1+ 01/25/24 07:15 Macrocytosis Slight 01/25/24 07:15 Morphology Comment Noted (NOT SEEN) 01/25/24 07:15 Sodium 140 mEq/L (136-145) 01/23/24 14:23 Potassium 4.1 mEq/L (3.5-5.1) 01/23/24 14:23 Chloride 106 mEq/L (98-107) 01/23/24 14:23 Carbon Dioxide 32 mEq/L (21-32) 01/23/24 14:23 Anion Gap 6.1 mEq/L (5.0-15.0) 01/23/24 14:23 BUN 21 mg/dL (7-18) H 01/23/24 14:23 Creatinine 0.61 mg/dL (0.55-1.02) 01/23/24 14:23 Est GFR (CKD-EPI) 96 ml/min (=/>90) 01/23/24 14:23 Glucose 119 mg/dL (74-106) H 01/23/24 14:23 Calcium 9.5 mg/dL (8.5-10.1) 01/23/24 14:23 Magnesium 1.7 mg/dL (1.6-2.4) 01/23/24 14:23 Lactate Dehydrogenase 557 U/L (84-246) H 01/25/24 07:15 Albumin 2.3 g/dL (3.4-5.0) L 01/23/24 14:23 Prealbumin 12.7 mg/dL (20-40) L 01/23/24 14:23 Procalcitonin 0.07 ng/mL (<0.050) H 01/25/24 07:15 Urine Color Light-yellow (Yellow) 01/23/24 19:24 Urine Clarity Turbid (Clear) H 01/23/24 19:24 Urine pH 6.5 (5.0-7.0) 01/23/24 19:24 Ur Specific [place] 1.012 (1.005-1.030) 01/23/24 19:24 Glucose (UA)(Auto) Negative (Negative) 01/23/24 19:24 Urine Ketones Negative (Negative) 01/23/24 19:24 Urine Blood 3+ (Negative) H 01/23/24 19:24 Urine Nitrite 1+ (Negative) H 01/23/24 19:24 Urine Bilirubin Negative (Negative) 01/23/24 19:24 Urine Urobilinogen Normal (Normal) 01/23/24 19:24 Ur Leukocyte Esterase 500 Mino/uL (Negative) H 01/23/24 19:24 Urine RBC 21-50 /HPF (None Seen) H 01/23/24 19:24 Urine WBC 20-50 /HPF (<5) H 01/23/24 19:24 Ur Squamous Epith Cells None seen /HPF (None Seen) 01/23/24 19:24 U Non-Squamous Epi Cells <5 /HPF (None Seen) 01/23/24 19:24 Urine Bacteria <20 /HPF (<20) 01/23/24 19:24 Urine Culture Reflexed Reflexed 01/23/24 19:24 Urine Total Protein Negative (Negative) 01/23/24 19:24 Smear Scan Ok (OK) 01/23/24 16:19 Weight: 128 lb Closed Surgical Incision Present: Yes Physician Update: WBC is elevated to 18, 86% neutrophils. She is on dual antibiotics. BIMS 13, SLUMS 15. Difficulty organizing thoughts. 2/4 STG with speech, 2/4 STG with physical therapy. Min assist for sit to stand and piviot. RW 20' with hip and back pain. Met 1/4 STG, max assist with LBD. Min assist with shower transfers. Summary: Patient's care plan and long term care social worker goals have been reviewed and revised as necessary. Please see the Rehabilitation Signature page for all necessary signatures.
[2024-01-25] MEDS: GABAPENTIN 300 MG CAP PO SCH (19:39)
[2024-01-26] MEDS: TRAZODONE 50 MG TABLET PO PRN (00:43)
[2024-01-26] MEDS ORDERED: cloNIDine HCL 0.1 MG TAB PO PRN (20:12)
[2024-01-26] MEDS: HYDROCODONE/APAP 5/325 MG TAB PO SCH (21:15)
[2024-01-26] MEDS: Levofloxacin500mg IV 500 MG/100 ML BAG IV SCH (21:19)
[2024-01-27 07:27] LABS: Absolute Basophils 0.2 K/uL (0-0.5); Absolute Eosinophils 0.5 K/uL (0-0.5); Absolute Lymphocytes (CBC) 1.9 K/uL (0.7-4.9); Absolute Monocytes 0.9 K/uL (0.1-1.3); Absolute Neutrophil 12.3 K/uL (1.8-8.0); Eosinophils % 3.2 % (0-4.4); Hematocrit 28.3 % (36.0-45.0); Hemoglobin 8.9 g/dL (12.0-15.0); Lymphocytes % 12.2 % (15.3-44.8); MCH 30.1 pg (27.0-35.0); MCHC 31.5 g/dL (32.0-36.0); MCV 95.6 fL (80-100); MPV 8.3 fL (7.6-11.3); Monocytes % 5.6 % (3.3-12.3); Nucleated RBC Absolute Count 0.1 (0-0); Nucleated Red Blood Cells % 0.3 % (0-0); Platelets 471 thou/uL (152-406); RBC Red Blood Cell Count 2.96 M/uL (3.86-4.86); Red Cell Distribution Width 15.3 % (12.1-15.2)
[2024-01-27 07:44] LABS: Anion Gap 1.8 mEq/L (5.0-15.0); Potassium 4.8 mEq/L (3.5-5.1)
[2024-01-27] MEDS ORDERED: HYDROCODONE/APAP 5/325 MG TAB PO SCH (08:00)
[2024-01-27] MEDS: SODIUM CHLORIDE 0.9% 10ML INJ IV SCH (21:08)
[2024-01-28] MEDS: ACETAMINOPHEN 500 MG TAB PO PRN (16:36)
[2024-01-28] MEDS: GABAPENTIN 300 MG CAP PO SCH (21:09)
[2024-01-28] MEDS: TRAZODONE 50 MG TABLET PO SCH (21:15)
--- NOTE | 2024-01-28 23:42 | PN ---
Date of Progress Note: 01/28/2024 Time Of Service: 1:10 p.m. Subjective: Ms. Gold is in her room doing therapy. She does report some more pain in the left hip, where she had hip replacement and would like an adjustment made to her pain medications. Her gabape ntin dosage was doubled to 600 mg twice daily, Tylenol 500 mg every 4 hours as needed. She does have scheduled [place] 5/325 twice daily. Also, there were some complaints of difficulty sleeping and traz odone 50 mg will be scheduled with melatonin 10 mg at night. Objective: Again, moderate to more increased pain in the left hip, especially with transferring and mobilization. Otherwise, no fevers, chills, nausea, or vomiting and no other complaints on objective . Physical Examination: Vital Signs: Blood pressure 150/62, pulse 76, respiratory rate 16, temperature 97.8, oxygen saturati on 96%. General: Again, Ms. Gold is resting in chair. Does report pain as noted. She is with Speech Patho logy. HEENT: She is otherwise normocephalic, atraumatic. Sclerae anicteric. Oropharynx pink and moist. Neck: Supple. Chest: Clear. Extremities: She does have good hemostasis of the left hip surgical site. Camilo will be removed w ith consultation with the patient's surgeons. Laboratory Studies: Her white blood cell count improved to 15.7 from 22.2 four days ago. Hemoglobin is stable at 8.9 and platelets 471. Her sodium 144, potassium 4.8, chloride 107, carbon dioxide 40, BUN 15, creatinine 0.46, glucose 102, calcium 9.7. X-ray/imaging: No new x-rays or imaging. Medications: Medications have been adjusted as noted. Otherwise, she continues Eliquis 5 mg twice d aily for stroke and DVT risk reduction, Lipitor 20 mg at bedtime, Celebrex 200 mg twice daily, [place] 5/325 twice daily, and Tylenol as needed every 4 hours. Clonidine patch for her blood pressure. She has Vasotec, gabapentin, levofloxacin IV, and Synthroid for hypothyroidism. Progress Made With Physical, Occupational, And Speech Therapy: With physical therapy today, complete d bed mobilization with contact guard assistance. Did multiple trials. Completed kgw-sw-ozfcp trans dena, maximal assistance, did have 10/10 pain as noted and moderate to maximum assistance for multiple hip-pt-wzkwm transfers. Did wheelchair leg raises and presses with manual resistance. She mobilize d a wheelchair 250 feet with standby assistance. With occupational therapy, moderate assistance with visual, tactile, and verbal cues to transfer from wheelchair to tub bench, washed 8 of 10 body parts , did not want to wash perineal area and buttocks. With her speech, worked on visual and spatial ski lls. She was independent with 100% accuracy for problem solving, needed minimum assistance for visua l and spatial tasks. Recall, convergent and divergent naming with 90% accuracy. Ms. Gold is making fair progress with physical, occupational, and speech therapy. She in terms of p hysical and occupational therapy, somewhat limited by severe pain and left hip and again pain medicat ions were adjusted as noted. Assessment And Plan: Ms. Gold is a 73-year-old patient with primary osteoarthritis of the left hip with status post total hip arthroplasty on the left. She has fibrillation and on anticoagulation. S he has hypothyroidism treated with Synthroid, hypertension treated with multiple and extensive medica tions. She has neuromodulator, gabapentin adjusted. She is on [place], pain patch, and antiinflammato ry medications. We will continue with melatonin and trazodone for insomnia, Senokot for constipation , Ensure Enlive for malnutrition, Lipitor for dyslipidemia. She again will continue with physical, o ccupational, and speech therapy for 3.5 hours, 5 of 7 days. LB/CARRINGTON Voice ID: [id number] Report ID: [id number]
--- NOTE | 2024-01-29 08:35 | P.CNS ---
Date of Consult: 01/29/24 Reason for Consult: painful toenails Allergies No Known Allergies Allergy (Unverified 01/16/24 01:23) Home Medications: Celecoxib [Celebrex] 200 mg PO BID 08/31/23 Enalapril Maleate 20 mg PO DAILY 08/31/23 Hydrocodone Bit/Acetaminophen [Hydrocodon-Acetaminophn 10-325] 0.5 - 1 tab PO Q6HP PRN 08/31/23 Levothyroxine Sodium [Synthroid] 150 mcg PO DAILY 08/31/23 Liothyronine Sodium [Cytomel] 5 mcg PO DAILY 08/31/23 Metoprolol Succinate [Toprol Xl*] 50 mg PO DAILY 08/31/23 Sertraline [Zoloft*] 25 mg PO BEDTIME 08/31/23 Atorvastatin Calcium [Lipitor*] 20 mg PO BEDTIME 01/10/24 Metformin HCl [Glucophage*] 850 mg PO DAILY WITH BREAKFAST 01/10/24 Amiodarone HCl [Cordarone*] 200 mg PO BID #60 tab 01/23/24 Amlodipine [Norvasc*] 5 mg PO DAILY #30 tab 01/23/24 Aspirin [Aspirin EC 81 MG] 81 mg PO DAILY #90 tab 01/23/24 Losartan Potassium [Cozaar*] 50 mg PO BID 01/23/24 Magnesium Oxide [Mag 0X*] 400 mg PO BID tab 01/23/24 Melatonin 10 mg PO BEDTIME PRN PRN 01/23/24 icosapent ethyL [Icosapent Ethyl] 0.5 gm PO DAILY #30 cap 01/23/24 - Past Medical/Surgical History Diabetic: Yes -: HTN -: HLD -: Hypothyroidism -: DM II -: AFIB -: Arthritis -: diabetes -: x 2 -: sinus surgery - Family History Father Medical History: Heart disease, Diabetes Mother Medical History: Heart disease Sister Medical History: Heart disease - Social History Smoking Status: Former smoker Alcohol use: No CD- Drugs: No Caffeine use: Yes Place of Residence: Home Review of Systems 10-point ROS is otherwise unremarkable Physical Examination Temp Pulse Resp BP Pulse Ox 97.6 F 77 17 184/77 H 96 01/29/24 07:52 01/29/24 08:28 01/29/24 07:52 01/29/24 08:28 01/29/24 07:52 General: Alert, In no apparent distress, Oriented x3 Cardiovascular: Abnormal pulses (0/4 dp and pt pulses bilateral) Capillary refill: >2 Seconds Musculoskeletal: No clubbing, No swelling, No contractures, No erythema, No tenderness, No warmth Integumentary: Other (Thickened hypertrophic nails with subungual debris x 10. Preulcerative lesion plantar left hallux without signs of infection. Absent hair growth noted) Neurological: Sensation intact - Problems (1) Type 2 diabetes mellitus with diabetic peripheral angiopathy without gangrene Current Visit: Yes Status: Acute (2) Tinea unguium Current Visit: Yes Status: Acute Conclusions/Impression: Mechanical debridement of nails at bedside
[2024-01-30] MEDS: CARBIDOPA/LEVODOPA 25/100 TAB PO SCH (07:03)
[2024-01-30] MEDS: ENALAPRIL 10 MG TAB PO SCH (20:00)
[2024-01-30] MEDS: MELATONIN 5 MG TABLET PO SCH (20:47)
[2024-01-30] MEDS: TRAZODONE 50 MG TABLET PO SCH (20:48)
[2024-01-30] MEDS ORDERED: AMLODIPINE 5 MG TAB PO SCH (21:00)
--- NOTE | 2024-01-30 23:05 | PN ---
Date of Progress Note: 01/30/2024 Time Of Service: 1:15 p.m. Subjective: Ms. Gold is resting in bed. She said the pain she has experienced since being in the h ospital in the left hip is better. She is sleeping better and this is after medication adjustments w ere made. Objective: Again, less pain, less difficulty sleeping. No fevers, chills. Mild myalgias and arthra lgias. No rash. No psychiatric complaints. No other positives on the systems review. Physical Examination: Vital Signs: Blood pressure 121/53, pulse of 85, respiratory rate 16, temperature 97.2. General: It is noted that earlier this morning, she had a low blood pressure of 86/40. Her blood pr essure medication regimen was adjusted to cut in half, her Vasotec from 20 twice a day to 10 twice a day. In addition, the Norvasc was switched from 5 mg in morning to 5 mg at bedtime. She continued C ordarone 200 mg twice daily and Cozaar 50 mg twice daily. HEENT: Otherwise, in terms of examination, she is normocephalic, atraumatic. Sclerae anicteric. Or opharynx pink and moist. Neck: Supple. Extremities: She has good hemostasis in left hip surgical site and no edema or cyanosis noted. Laboratory Studies: No new laboratory studies since the and blood work from the showed sod ium 144, potassium 4.8, BUN 15, creatinine 0.46. Her white blood cell count did come down to 15.7 wi th neutrophils 78.0. She did have continued Levaquin for the leukocytosis. X-ray/imaging: No new x-rays or imaging. Consultations: She was seen by Dr. Vijay Jamison on the Podiatry Service and had debridement of the t oenails at the bedside. Progress Made With Physical, Occupational, And Speech Therapy: With physical therapy today, she did multiple yyo-im-ajjji transfers with minimum assistance and verbal cues. She did ambulate 550 feet 5 times with minimum assistance. Emphasis placed on upright posture, did need a rest break for the sh ort distances. With occupational therapy, supervision for zovhqu-dn-bbo transfers. She did sit-to-s tand transfers with contact guard assistance. Contact guard assistance for toilet hygiene due to imp aired standing balance. With speech, she recalled 3 of 4 unrelated words on first attempt after 7 mi nutes and 4 of 4 on second attempt after 7 minutes. Problem solving exhibited with 75% accuracy and maximum assistance. Ms. Gold is making slow progress so far with physical, occupational, and speech therapy, however, sh darrel is now 1 week in. She was significantly limited by pain in the left hip that is improving. She al so had difficulty with sleep and that is also improving. Assessment: Ms. Gold is a 73-year-old patient, admitted to the rehabilitation unit with left hip os teoarthritis, status post left total hip arthroplasty, from which she is improving in terms of pain a nd return of function. She has atrial fibrillation, hypothyroidism, hypertension, decreased mobility , decreased physical functioning, constipation, leukocytosis, dyslipidemia. Plan: She will continue with physical, occupational, and speech therapy. Continue with all medicati ons for her comorbid conditions which include the antihypertensive medication management as she had o rthostatic changes and low blood pressure this morning. There were multiple antihypertensives, they will be adjusted appropriately that includes stopping some medications. We will continue Eliquis for DVT prophylaxis. Continue carbidopa/levodopa for Parkinson's symptoms. Continue Vasotec as noted, ferrous sulfate for anemia, gabapentin for neuropathic pain. She is finishing the antibiotic Levaqui n from 01/25 to 02/01, magnesium oxide for muscle spasm, melatonin for insomnia, Ensure Enlive for ma lnutrition, trazodone again for insomnia at night, and that is scheduled with melatonin. LB/ISATUL Voice ID: [id number] Report ID: [id number]
[2024-01-31 05:34] LABS: Absolute Basophils 0.1 K/uL (0-0.5); Absolute Eosinophils 0.3 K/uL (0-0.5); Absolute Lymphocytes (CBC) 1.7 K/uL (0.7-4.9); Absolute Neutrophil 6.1 K/uL (1.8-8.0); Eosinophils % 3.1 % (0-4.4); Hematocrit 25.1 % (36.0-45.0); Hemoglobin 7.7 g/dL (12.0-15.0); Lymphocytes % 18.7 % (15.3-44.8); MCH 30.2 pg (27.0-35.0); MCHC 30.8 g/dL (32.0-36.0); MCV 98.1 fL (80-100); MPV 8.4 fL (7.6-11.3); Monocytes % 10.8 % (3.3-12.3); Neutrophils % 66.4 % (41.7-73.7); Platelets 379 thou/uL (152-406); RBC Red Blood Cell Count 2.56 M/uL (3.86-4.86); Red Cell Distribution Width 17.2 % (12.1-15.2)
[2024-01-31 06:06] LABS: Albumin 2.1 g/dL (3.4-5.0); Anion Gap 2.1 mEq/L (5.0-15.0); Magnesium 2.6 mg/dL (1.6-2.4); Prealbumin 15.5 mg/dL (20-40)
[2024-01-31 06:08] LABS: Potassium 6.1 mEq/L (3.5-5.1)
[2024-01-31] MEDS: SOD POLYSTYREN SUL 15 GM/60 ML UCUP PO ONE (07:15)
[2024-01-31] MEDS: ENALAPRIL 10 MG TAB PO SCH (08:00)
[2024-01-31] MEDS: LOSARTAN POTASSIUM 50 MG TABLET PO SCH (08:09)
[2024-01-31] MEDS: AMLODIPINE 5 MG TAB PO SCH (20:34)
[2024-01-31] MEDS: GABAPENTIN 300 MG CAP PO SCH (20:35)
--- NOTE | 2024-01-31 21:42 | PN ---
Date of Progress Note: 01/31/2024 Time Of Service: 1:10 p.m. Subjective: Ms. Gold is in between therapy sessions and reports some moderate pain in the left hip where there is the surgical replacement total hip arthroplasty. However, she says pain is moderately better, but still significant. She is sleeping better after adjustments of her sleep aid medication . Note, gabapentin will be increased from 600 mg twice daily to 900 mg twice daily. Objective: Again, some pain in the left hip and difficulty sleeping, which is improved. Otherwise, no fevers, chills. Mild myalgias, arthralgias. No rash. No psychiatric complaints. Physical Examination: Vital Signs: Blood pressure 124/56, pulse 88, respiratory rate 16, temperature 97.2, oxygen saturati on 96%. General: Ms. Gold again is resting in bed. She is in no significant distress. HEENT: She is normocephalic, atraumatic. Sclerae anicteric. Oropharynx moist. Neck: Supple. Chest: Clear. Extremities: Mild trace edema in left lower extremity. Otherwise, no additional findings. Laboratory Studies: White blood cell count 9.3, which is now normal, it was 15.7 three days ago, hem oglobin is slightly down to 7.7, hematocrit 25.1, platelets 379. Sodium is 137, potassium was elevat ed to 6.1, and she did have Kayexalate 50 mg x1 and has at least 2 bowel movements. Prealbumin is lo w at 15.5, albumin low at 2.1, magnesium slightly elevated at 2.6, calcium 9.0, glucose 92, BUN 22, c reatinine 0.74. X-ray/imaging: No new x-rays or imaging. Medications: As noted, she did receive Kayexalate. Also, she is receiving carbidopa/levodopa in the morning for possible parkinsonian symptoms, Norvasc 2.5 mg at bedtime for hypertension, amiodarone 2 00 mg twice daily, Lipitor 20 mg at bedtime, Celebrex 200 mg twice daily, clonidine as needed for sys tolic blood pressure greater than 170 and is 0.1 mg, ferrous sulfate 325 mg daily, gabapentin again 9 00 mg twice daily. She is continuing the levofloxacin antibiotic 500 mg every 24 hours, Synthroid 0. 15 mg daily, lidocaine patch apply topically daily, Cozaar 25 mg twice daily, magnesium oxide 400 mg twice daily, melatonin 10 mg at bedtime, Hemocyte Plus 1 tablet daily, Ensure Enlive 237 mL twice ronald ly, Senokot-S 2 at bedtime, and Desyrel 50 mg daily. Progress Made With Physical, Occupational, And Speech Therapy: With physical therapy, she ambulated 30 feet twice, 50 feet once, and 60 feet 4 times with minimum assistance. She did have poor motor pl anning with all gait tasks. Performed wheelchair mobility covering 250 feet with standby assistance and verbal cues for navigating obstacles. With occupational therapy, incontinent of bowel and she is dependent for toilet hygiene, independent with oral hygiene, face washing, sitting in wheelchair, re quired supervision for vzsycj-kd-knr transfers at edge of bed, contact guard assistance for sit-to-st and and for wheelchair transfer. With speech, she required moderate to maximum assistance for proble m solving tasks at 60% accuracy. She was able to do divergent and convergent naming task with 90% ac curacy. Ms. Gold is making improved overall progress with her physical and occupational therapy, however, st ill somewhat limited by pain and insomnia. Assessment And Plan: Ms. Gold is a 73-year-old patient, admitted to rehabilitation unit with primar y osteoarthritis of the left hip, status post total hip arthroplasty on the left. She has comorbid o f Parkinson's symptoms, for which she is on carbidopa/levodopa. She has Eliquis for DVT prophylaxis, ferrous sulfate, protein supplementation for anemia and malnutrition, gabapentin for neuropathic com ponent of her pain, and continuing the Levaquin as noted for her elevated white count. We will augusto nue melatonin for insomnia, trazodone as well for the insomnia. Comorbidities That Are Impacting Rehabilitation: Her significant pain of course is a factor and pain medications have been adjusted. In addition, she has some difficulty initiating movement with parki nsonian features. She will have the trial of carbidopa/levodopa as she does therapy to determine any changes in the use of initiating movement and maintaining moveme nt. LB/MODL Voice ID: [id number] Report ID: [id number]
[2024-02-01 08:09] LABS: Anion Gap 2.9 mEq/L (5.0-15.0); Potassium 5.9 mEq/L (3.5-5.1)
[2024-02-01] MEDS: SOD POLYSTYREN SUL 15 GM/60 ML UCUP PO SCH (12:23)
--- NOTE | 2024-02-01 13:18 | P.RH.PN ---
Estimated Length of Stay: 15 Expected Discharge Date: 02/05/24 Discharge Disposition Plan: Home Family Support: Yes Mcfp Goal: Mobility, Transfers, Self Care Vital Signs: Last Vital Signs Temp 97.1 F 02/01/24 08:00 Pulse 73 02/01/24 08:00 Resp 17 02/01/24 08:27 BP 118/59 L 02/01/24 08:00 Pulse Ox 98 02/01/24 08:27 Laboratory: Laboratory Last Values WBC 9.30 thou/uL (4.3-10.9) 01/31/24 05:10 RBC 2.56 M/uL (3.86-4.86) L 01/31/24 05:10 Hgb 7.7 g/dL (12.0-15.0) L 01/31/24 05:10 Hct 25.1 % (36.0-45.0) L 01/31/24 05:10 MCV 98.1 fL (80-100) 01/31/24 05:10 MCH 30.2 pg (27.0-35.0) 01/31/24 05:10 MCHC 30.8 g/dL (32.0-36.0) L 01/31/24 05:10 RDW 17.2 % (12.1-15.2) H 01/31/24 05:10 Plt Count 379 thou/uL (152-406) 01/31/24 05:10 MPV 8.4 fL (7.6-11.3) 01/31/24 05:10 Neutrophils % 66.4 % (41.7-73.7) 01/31/24 05:10 Lymphocytes % 18.7 % (15.3-44.8) 01/31/24 05:10 Monocytes % 10.8 % (3.3-12.3) 01/31/24 05:10 Eosinophils % 3.1 % (0-4.4) 01/31/24 05:10 Basophils % 1.0 % (0-1.3) 01/31/24 05:10 Absolute Neutrophils 6.1 K/uL (1.8-8.0) 01/31/24 05:10 Segmented Neutrophils 86 % (40-80) H 01/25/24 07:15 Absolute Lymphocytes 1.7 K/uL (0.7-4.9) 01/31/24 05:10 Lymphocytes 5 % (15-42) L 01/25/24 07:15 Monocytes 5 % (0-10) 01/25/24 07:15 Absolute Monocytes 1.0 K/uL (0.1-1.3) 01/31/24 05:10 Eosinophils 4 % (0-3) H 01/25/24 07:15 Absolute Eosinophils 0.3 K/uL (0-0.5) 01/31/24 05:10 Absolute Basophils 0.1 K/uL (0-0.5) 01/31/24 05:10 Nucleated RBCs 2 /100WBC 01/25/24 07:15 Platelet Estimate Adeq 01/25/24 07:15 Polychromasia Slight 01/25/24 07:15 Basophilic Stippling 1+ 01/25/24 07:15 Anisocytosis 1+ 01/25/24 07:15 Macrocytosis Slight 01/25/24 07:15 Morphology Comment Noted (NOT SEEN) 01/25/24 07:15 Sodium 139 mEq/L (136-145) 02/01/24 07:36 Potassium 5.9 mEq/L (3.5-5.1) H 02/01/24 07:36 Chloride 99 mEq/L (98-107) 02/01/24 07:36 Carbon Dioxide 43 mEq/L (21-32) H 02/01/24 07:36 Anion Gap 2.9 mEq/L (5.0-15.0) L 02/01/24 07:36 BUN 27 mg/dL (7-18) H 02/01/24 07:36 Creatinine 0.84 mg/dL (0.55-1.02) 02/01/24 07:36 Est GFR (CKD-EPI) 74 ml/min (=/>90) L 02/01/24 07:36 Glucose 105 mg/dL (74-106) 02/01/24 07:36 Calcium 9.4 mg/dL (8.5-10.1) 02/01/24 07:36 Magnesium 2.6 mg/dL (1.6-2.4) H 01/31/24 05:10 Lactate Dehydrogenase 557 U/L (84-246) H 01/25/24 07:15 Albumin 2.1 g/dL (3.4-5.0) L 01/31/24 05:10 Prealbumin 15.5 mg/dL (20-40) L 01/31/24 05:10 Procalcitonin 0.07 ng/mL (<0.050) H 01/25/24 07:15 Urine Color Light-yellow (Yellow) 01/23/24 19:24 Urine Clarity Turbid (Clear) H 01/23/24 19:24 Urine pH 6.5 (5.0-7.0) 01/23/24 19:24 Ur Specific [place] 1.012 (1.005-1.030) 01/23/24 19:24 Glucose (UA)(Auto) Negative (Negative) 01/23/24 19:24 Urine Ketones Negative (Negative) 01/23/24 19:24 Urine Blood 3+ (Negative) H 01/23/24 19:24 Urine Nitrite 1+ (Negative) H 01/23/24 19:24 Urine Bilirubin Negative (Negative) 01/23/24 19:24 Urine Urobilinogen Normal (Normal) 01/23/24 19:24 Ur Leukocyte Esterase 500 Mino/uL (Negative) H 01/23/24 19:24 Urine RBC 21-50 /HPF (None Seen) H 01/23/24 19:24 Urine WBC 20-50 /HPF (<5) H 01/23/24 19:24 Ur Squamous Epith Cells None seen /HPF (None Seen) 01/23/24 19:24 U Non-Squamous Epi Cells <5 /HPF (None Seen) 01/23/24 19:24 Urine Bacteria <20 /HPF (<20) 01/23/24 19:24 Urine Culture Reflexed Reflexed 01/23/24 19:24 Urine Total Protein Negative (Negative) 01/23/24 19:24 Smear Scan Ok (OK) 01/23/24 16:19 Weight: 128 lb Wound Present: No Closed Surgical Incision Present: Yes Negative Pressure Wound Therapy Present: No Physician Update: Her potassium improved but is still elevated to 5.9. Pain level improved. SLLUMS 15, disorganized executive functioning. Difficulty processing information. Met 4/4 STG and 3/6 LTG. Min assist with transfers. WC 250' with SBA. Difficulty leaning forward and will likely need SNF. Poor motor planning, weak core muscles. Mod assist for transfers with verbal ques. Not safe to D/C home and will go to SNF. Summary: Patient's care plan and terminal gauger goals have been reviewed and revised as necessary. Please see the Rehabilitation Signature page for all necessary signatures.
--- NOTE | 2024-02-01 13:27 | EKG ---
Test Date: 2024-01-31 Test Time: 20:30:15 Guide Plant: Lance HUIZAR MEASUREMENT RESULTS: Intervals: Rate: 75 ID: [id number] QRSD: 90 QT: 394 QTc: 439 Gary: P: 48 ID: [id number] QRS: 88 T: 45 INTERPRETIVE STATEMENTS: Normal sinus rhythm Low voltage QRS Borderline ECG Compared to ECG 01/17/2024 19:01:52 Low QRS voltage now present Atrial fibrillation no longer present Myocardial infarct finding no longer present Electronically Signed On 02-01-24 13:26:18 CDT by Janak Knight
[2024-02-01] MEDS: ENALAPRIL 2.5 MG TAB PO SCH (21:22)
[2024-02-02 07:04] LABS: Anion Gap 1.1 mEq/L (5.0-15.0); BUN Blood Urea Nitrogen 41 mg/dL (7-18); Glomerular Filtration Rate 76 ml/min (=/>90); Glucose Level 101 mg/dL (74-106); Sodium Level 137 mEq/L (136-145)
[2024-02-02 07:05] LABS: Bicarbonate > 45 mEq/L (21-32); Potassium 6.1 mEq/L (3.5-5.1)
[2024-02-02 07:41] VITALS: BP 113/53
[2024-02-02] MEDS: SOD POLYSTYREN SUL 15 GM/60 ML UCUP PO ONE (07:49)
[2024-02-02 08:49] VITALS: TEMP 97.9
[2024-02-02] MEDS: SODIUM ZIRCONIUM CYCLOSILICATE 10 GM/PKT PO ONE (11:00)
[2024-02-02 11:16] LABS: Arterial Blood Carboxyhemoglob 1.8 % (0-1.5); Blood Gas THB 8.3 g/dl (12-18); Blood O2 Saturation 97.9 % (92-98.5)
[2024-02-02 11:42] VITALS: O2SAT 99
== END 2024-02-02 13:00 | disposition short-term general hospital (02) | DRG 560 ==
LOC: 5TH 10:30
PROVIDERS: ADMIT Psychiatry & Neurology Neurology with Special Qualifications in Child Neurology; ATTEND Psychiatry & Neurology Neurology with Special Qualifications in Child Neurology
PROC: 0HBRXZZ Excision of Toe Nail, External Approach (ICD-10-PCS; principal; 2024-01-29)
PROC: 0HBRXZZ Excision of Toe Nail, External Approach (ICD-10-PCS; 2024-01-29)
PROC: 0HBRXZZ Excision of Toe Nail, External Approach (ICD-10-PCS; 2024-01-29)
PROC: 0HBRXZZ Excision of Toe Nail, External Approach (ICD-10-PCS; 2024-01-29)
PROC: 0HBRXZZ Excision of Toe Nail, External Approach (ICD-10-PCS; 2024-01-29)
PROC: 0HBRXZZ Excision of Toe Nail, External Approach (ICD-10-PCS; 2024-01-29)
PROC: 0HBRXZZ Excision of Toe Nail, External Approach (ICD-10-PCS; 2024-01-29)
PROC: 0HBRXZZ Excision of Toe Nail, External Approach (ICD-10-PCS; 2024-01-29)
PROC: 0HBRXZZ Excision of Toe Nail, External Approach (ICD-10-PCS; 2024-01-29)
PROC: 0HBRXZZ Excision of Toe Nail, External Approach (ICD-10-PCS; 2024-01-29)
DX: Z47.1 Aftercare following joint replacement surgery (principal); E46 Unspecified protein-calorie malnutrition; Z96.642 Presence of left artificial hip joint; I10 Essential (primary) hypertension; E78.5 Hyperlipidemia, unspecified; E03.9 Hypothyroidism, unspecified; E11.9 Type 2 diabetes mellitus without complications; I48.91 Unspecified atrial fibrillation; M19.90 Unspecified osteoarthritis, unspecified site; K74.60 Unspecified cirrhosis of liver; I27.20 Pulmonary hypertension, unspecified; G47.00 Insomnia, unspecified; B35.1 Tinea unguium; K59.00 Constipation, unspecified; M62.838 Other muscle spasm; G20.A1 Parkinson's disease without dyskinesia, without mention of fluctuations; Z68.22 Body mass index [BMI] 22.0-22.9, adult
CPT/HCPCS: 36415; 71045; 80048; 81001; 82040; 82805; 82947; 83615; 83735; 84134; 84145; 85025; 87086; 87088; 92523; 93005; 94660; 97110; 97116; 97129; 97163; 97165; 97530; 97542; A4216; J0696; J2001; J3420; J7050

== ENCOUNTER 2024-02-02 12:47 | Inpatient (IN) | payer OTHER ==
--- OUTSIDE RECORDS SUMMARY | 2024-02-02 13:14 | XMS REPORT | Continuity of Care Document ---
Author Name Unknown Address [address] [place] [address] [facility] thconnect Address [address] [place] [address] Care Team Providers Care Party Plan Demonstrator Name Role Phone ERIC BUTCHER Primary Care Physician Jason morillo RADIOLOGY Attending Clinician Unavailable Radiology Attending Clinician Unavailable Cayden Barraza Cardiology Attending Clinician Unavailable ERIC BUTCHER Admitting Clinician Unavailab le KNOW, DOES_NOT Admitting Clinician Unavailable Payers Payer Name Policy Type Policy Number Effective Date Expirati on Date Source [facility] [employer] [place] [id number] 2017 00:00:00 Allergies, Adverse Reactions, Alerts Allergy Name Allergy Type Status Severity Reaction(s) Onset Date Inactive Date Treating Clinician Comments Source No Known Allergie s DA Active U 07-05 00:00: 00 [facility] NO KNOWN ALLERGIE S Drug Class Active [facility] Social History Social Habit Start Date Stop Date Quantity Comments Source Sexual orientation U [facility] Sex Assigned At 1950 00:00:00 1950 00:00:00 [facility] Smoking Status Start Date Stop Date Source Tobacco smoking consumption unknown [facility] Encounters Start Date/Time End Date/Time Encounter Type Admission Type Attending Clinicians Care Facility Care Department Encounter ID Source 2023-09-17 08:47:59 2023-09-17 23:59:00 Outpatient R RADIOLOGY [facility] [id number] [facility] 2023-09-17 08:45:00 2023-09-17 23:59:00 Hospital Encounter Radiology [facility] [id number] [facility] 2023-07-07 06:55:00 2023-07-07 06:55:00 Outpatient Cayden Mayers [facility] CATH [id number] [facility] Results Test Description Test Time Test Comments Results Result Co mments Source COMPREHENSIVE METABOLIC [id number] 09:24:00* Test Item Value Reference Range Interpretation [...] = LDL) 96 MG/DL 0-129 N <100 OPTIMAL1 00 - 129 NEAR OPTIMAL/ABOVE [id number] - 159 [id number] - 189 HIGH>OR= 190 VERY HIGHNOTE THAT GUIDELINES ARE PROVIDED BY NATIONAL CHOLESTEROLEDUCATION PROGRAM ADULT TREATMENT PANEL III LDL/HDL (test code = LDL/HDL) 1.81 Ratio See_Comment N [Automated messa ge] The system which generated this result transmitted reference range: 1.48-3.22 Avg. The reference range was not used to interpret this result as normal/abnormal. PROTHROMBIN [id number] 07:52:00* Test Item Value Reference Range Interpretation [...] Infarction (to prevent recurrent infarct). CBC W/AUTO [id number] 07:47:00* Test Item Value Reference Range Interpretation [...] Notes Date/Time Note Provider Source 2023-07-07 10:42:00 [id number] [address] PATIENT NAME: PUJA JEAN ADMIT DATE: 07/07/23 ACCOUNT NO: [id number] ROOM NO: AGE: 72 REPORT TYPE: CARDIAC CATHETERIZATION REPORT SEX: F ADMITTING PHYSICIAN: ATTENDING PHYSICIAN: Cayden Barraza MD PROCEDURE DATE: 07/07/2023 ETIQUETTE TEACHER: Cayden Barraza MD INDICATION FOR THE PROCEDURE: [...] femoral artery area for local anesthesia. A 6-Dominican sheath was placed in the right common [...] Date Transcribed: 07/07/2023 12:23:29 QUINTIN/ELIZABETH Teague #: [id number] Receipt ID: [id number] Authenticated by Cayden Barraza MD On 07/08/2023 08:09:19 AM at 0809 PATIENT NAME: PUJA JEAN [facility] 2023-07-07 07:34:00 [id number] [address] PATIENT NAME: PUJA JEAN ADMIT DATE: 07/07/23 ACCOUNT NO: [id number] ROOM NO: AGE: 72 REPORT TYPE: eELECTROCARDIOGRAM SEX: F ADMITTING PHYSICIAN: ATTENDING PHYSICIAN: Cayden Barraza MD Order: [id number] Test Reason : Pre Heart Cath Test [...] BARRAZA at 0825 PATIENT NAME: PUJA JEAN [facility] 2023-07-06 07:12:00 [id number] [address] PATIENT NAME: PUJA JEAN ADMIT DATE: ACCOUNT NO: [id number] ROOM NO: AGE: 72 REPORT TYPE: HISTORY AND PHYSICAL SEX: F ADMITTING PHYSICIAN: ATTENDING PHYSICIAN: Cayden Barraza MD Cardiology PATIENT NAME: PUJA JEAN ADMIT DATE:07/07/2023 ADMISSION DATE: 07/07/2023 07:30:00 ADMISSION HISTORY AND PHYSICAL ETIQUETTE TEACHER: Cayden Barraza MD. REASON FOR ADMISSION: Ischemia, [...] Date Transcribed: 07/06/2023 07:40:00 QUINTIN/ANIBAL/ALEX Receipt ID: [id number] Authenticated and Edited by Cayden Barraza MD On 07/06/23 4:00:29 PM at 0402 PATIENT NAME: PUJA JEAN [facility] Aron
[2024-02-02] MEDS ORDERED: ACETAMINOPHEN 500 MG TAB PO PRN (14:02)
[2024-02-02] MEDS ORDERED: MELATONIN 5 MG TABLET PO PRN (14:23)
--- NOTE | 2024-02-02 14:47 | P.HP ---
Certification for Inpatient Patient admitted to: Inpatient With expected LOS: >2 Midnights Practitioner: I am a practitioner with admitting privileges, knowledge of patient current condition, hospital course, and medical plan of care. Services: Services provided to patient in accordance with Admission requirements found in Title 42 Section 412.3 of the Code of Federal Regulations Patient History Date of Service: 02/02/24 Reason for admission: Altered mental status, difficulty swallowing History of Present Illness: 73-year-old woman with a history of chronic atrial fibrillation, hypothyroidism on thyroxine replacement therapy, recently hospitalized and underwent left hip arthroplasty and discharged to acute rehab was noted to have hyperkalemia, tremors and progressive difficulty swallowing. Patient appeared lethargic but oriented x 3. Hospitalist service was consulted to evaluate patient. Patient given a dose of Lokelma. Arterial blood gas showed CO2 retention with pCO2 up to 102. Patient started on BiPAP and admitted to the medical floor for further management. Allergies No Known Allergies Allergy (Unverified 01/16/24 01:23) Home Medications: Celecoxib [Celebrex] 200 mg PO BID 08/31/23 Enalapril Maleate 20 mg PO DAILY 08/31/23 Hydrocodone Bit/Acetaminophen [Hydrocodon-Acetaminophn 10-325] 0.5 - 1 tab PO Q6HP PRN 08/31/23 Levothyroxine Sodium [Synthroid] 150 mcg PO DAILY 08/31/23 Liothyronine Sodium [Cytomel] 5 mcg PO DAILY 08/31/23 Metoprolol Succinate [Toprol Xl*] 50 mg PO DAILY 08/31/23 Sertraline [Zoloft*] 25 mg PO BEDTIME 08/31/23 Atorvastatin Calcium [Lipitor*] 20 mg PO BEDTIME 01/10/24 Metformin HCl [Glucophage*] 850 mg PO DAILY WITH BREAKFAST 01/10/24 Amiodarone HCl [Cordarone*] 200 mg PO BID #60 tab 01/23/24 Amlodipine [Norvasc*] 5 mg PO DAILY #30 tab 01/23/24 Aspirin [Aspirin EC 81 MG] 81 mg PO DAILY #90 tab 01/23/24 Losartan Potassium [Cozaar*] 50 mg PO BID 01/23/24 Magnesium Oxide [Mag 0X*] 400 mg PO BID tab 01/23/24 Melatonin 10 mg PO BEDTIME PRN PRN 01/23/24 icosapent ethyL [Icosapent Ethyl] 0.5 gm PO DAILY #30 cap 01/23/24 - Past Medical/Surgical History Has patient received pneumonia vaccine in the past: Yes Diabetic: Yes -: HTN -: HLD -: Hypothyroidism -: DM II -: AFIB -: Arthritis -: diabetes -: x 2 -: sinus surgery -: Left total hip arthroplasty - Family History Father -: Heart disease, Diabetes Mother -: Heart disease Sister -: Heart disease - Social History Smoking Status: Former smoker Alcohol use: No CD- Drugs: No Caffeine use: No Place of Residence: Home Review of Systems Other: Patient vomited once this morning. She denies any abdominal pain. No fever. She denies any diarrhea. She denies wheezing or cough. She denies any chest pain. No reported seizures. Except as documented, all other systems reviewed and negative. Physical Examination - Vital Signs Temperature: 97.8 F Blood Pressure: 100/45 Pulse: 68 Respirations: 16 - Physical Exam General: In no apparent distress, Oriented x3, Other (Lethargic) HEENT: Atraumatic, Normocephalic, Mucous membr. moist/pink, EOMI, Sclerae nonicteric Neck: Supple, JVD not distended Respiratory: Diminished (Bilaterally, no crackles.) Cardiovascular: Normal S1 S2, Edema (1+ bilateral lower extremity edema), Irregular heart rate/rhythm Gastrointestinal: Normal bowel sounds, Soft and benign, Non-distended, No tenderness Musculoskeletal: No swelling, No tenderness Integumentary: No rashes, No cyanosis Neurological: Normal speech, Normal strength at 5/5 x4 extr, Other (Psychomotor retardation) Lymphatics: No axilla or inguinal lymphadenopathy Assessment and Plan - Problems (Diagnosis) (1) Hyperkalemia Current Visit: Yes Status: Acute (2) Respiratory acidosis Current Visit: Yes Status: Acute (3) Acute respiratory failure with hypercapnia Current Visit: Yes Status: Acute (4) Iatrogenic hyperthyroidism Current Visit: Yes Status: Acute (5) DM type 2 (diabetes mellitus, type 2) Current Visit: Yes Status: Acute (6) S/P total left hip arthroplasty Current Visit: No Status: Acute (7) Chronic atrial fibrillation Current Visit: Yes Status: Acute - Plan Hyperkalemia Likely related to respiratory acidosis. Patient given a dose of Lokelma. Admit patient to telemetry Obtain EKG Hyperkalemia emergency treatment with IV calcium and IV Lasix. Recheck BMP and give Lokelma as needed. Treat respiratory acidosis with BiPAP. Acute respiratory failure with hypercapnia Respiratory acidosis Etiology of respiratory failure unclear. Probably secondary to hypoventilation. BiPAP therapy Scheduled bronchodilators IV steroid Pulmonary consult. Patient with significantly elevated serum bicarb level. She may benefit from Diamox. Iatrogenic hyperthyroidism Patient has markedly low TSH level indicating significant hypothyroidism.. Hold all thyroid replacement therapy. Recheck TSH in 8 weeks. Status post left total hip replacement Analgesics as needed. DVT prophylaxis Continue PT. Oropharyngeal dysphagia Speech evaluation Dysphagia diet for now Acute blood loss anemia Monitor H&H and transfuse as needed for hemoglobin less than 7. Chronic atrial fibrillation Continue amiodarone Patient is not on any anticoagulation. DVT prophylaxis: Heparin SQ and SCD. Advanced directive: Full code. - Advance Directives Does patient have a Living Will: No Does patient have a Durable POA for Healthcare: No
[2024-02-02 15:17] LABS: Anion Gap 0.2 mEq/L (5.0-15.0); Potassium 5.2 mEq/L (3.5-5.1)
[2024-02-02] MEDS: FUROSEMIDE 40 MG/4 ML VIAL IV ONE (15:36)
[2024-02-02] MEDS: NA CHLORIDE 0.9% 1,000 ML IV SCH (15:37)
[2024-02-02] MEDS: CALCIUM GLUC 10% INJ 9.3 MEQ in NA CHLORIDE 0.9% 100 ML IV ONE (15:39)
[2024-02-02] MEDS: HEPARIN 5000 UNIT/ML 1 ML VIAL SQ SCH (16:21)
[2024-02-02] MEDS: METHYLPREDNISOLONE 40 MG INJ IV SCH (16:21)
[2024-02-02] MEDS: IPRATROPIUM BROM 0.5MG/2.5ML NEB SCH (19:00)
[2024-02-02] MEDS: ALBUTEROL 2.5 MG/3 ML NEB SOL NEB SCH (19:00)
[2024-02-02] MEDS: AMIODARONE HCL 200 MG TAB PO SCH (20:51)
[2024-02-02] MEDS: ATORVASTATIN 20 MG TAB PO SCH (20:51)
[2024-02-02] MEDS: SERTRALINE HCL 50 MG TAB PO SCH (20:52)
[2024-02-03 07:25] LABS: Absolute Lymphocytes (CBC) 0.4 K/uL (0.7-4.9); Absolute Monocytes 0.1 K/uL (0.1-1.3); Absolute Neutrophil 7.6 K/uL (1.8-8.0); Basophils % 0.4 % (0-1.3); Hematocrit 25.6 % (36.0-45.0); Hemoglobin 7.9 g/dL (12.0-15.0); Lymphocytes % 4.5 % (15.3-44.8); MCH 30.7 pg (27.0-35.0); MCHC 30.9 g/dL (32.0-36.0); MCV 99.3 fL (80-100); MPV 9.5 fL (7.6-11.3); Monocytes % 0.7 % (3.3-12.3); Neutrophils % 94.4 % (41.7-73.7); Platelets 344 thou/uL (152-406); RBC Red Blood Cell Count 2.58 M/uL (3.86-4.86); Red Cell Distribution Width 18.3 % (12.1-15.2)
[2024-02-03 07:40] LABS: Albumin 2.4 g/dL (3.4-5.0); Albumin/Globulin Ratio 0.6 (1.1-1.8); Anion Gap 4.7 mEq/L (5.0-15.0); Bilirubin Total 0.4 mg/dL (0.2-1.0); Globulin 3.7 g/dL (2.3-3.5); Magnesium 2.2 mg/dL (1.6-2.4); Phosphorus 3.3 mg/dL (2.5-4.9); Potassium 4.7 mEq/L (3.5-5.1); Protein, Total 6.1 g/dL (6.4-8.2)
[2024-02-03 08:10] LABS: Anisocytosis 2+; Blood Morphology Comment NOTED (NOT SEEN); Hypochromasia 1+; Platelet Estimate ADEQ; White Blood Cell Scan OK (OK)
[2024-02-03] MEDS: METOPROLOL XL 50 MG TAB PO SCH (08:51)
[2024-02-03] MEDS: HYDROCODONE/APAP 5/325 MG TAB PO PRN (08:51)
[2024-02-03] MEDS: ASPIRIN EC 81 MG TAB PO SCH (08:51)
--- NOTE | 2024-02-03 13:48 | P.PN ---
Subjective Date of Service: 02/03/24 Chief Complaint: Altered mental status, difficulty swallowing Patient is more awake and interactive today. She is oriented x 4. She states her tremors have significantly improved. No issues overnight. No recorded fever. Physical Examination - Vital Signs Temperature: 98.5 F Blood Pressure: 122/53 Pulse: 68 Respirations: 16 Pulse Ox (%): 96 - Physical Exam General: Alert, In no apparent distress, Oriented x3 HEENT: Mucous membr. moist/pink Neck: JVD not distended Respiratory: Clear to auscultation bilaterally, Normal air movement Cardiovascular: No edema, Regular rate/rhythm, Normal S1 S2 Gastrointestinal: Normal bowel sounds, Soft and benign, Non-distended, No tenderness Integumentary: No rashes, No cyanosis Neurological: Normal speech, Normal strength at 5/5 x4 extr - Studies Laboratory Data (last 24 hrs) 02/03/24 02/03/24 02/02/24 07:02 05:50 14:45 WBC 8.00 Hgb 7.9 L Hct 25.6 L Plt Count 344 Sodium 139 137 Potassium 4.7 5.2 H D BUN 30 H 41 H Creatinine 0.64 0.85 Glucose 132 H 112 H Phosphorus 3.3 Magnesium 2.2 Total Bilirubin 0.4 AST 32 ALT 25 Alkaline Phosphatase 109 Assessment And Plan - Current Problems (Diagnosis) (1) Hyperkalemia Current Visit: Yes Status: Acute (2) Respiratory acidosis Current Visit: Yes Status: Acute (3) Acute respiratory failure with hypercapnia Current Visit: Yes Status: Acute (4) Iatrogenic hyperthyroidism Current Visit: Yes Status: Acute (5) DM type 2 (diabetes mellitus, type 2) Current Visit: Yes Status: Acute (6) S/P total left hip arthroplasty Current Visit: No Status: Acute (7) Chronic atrial fibrillation Current Visit: Yes Status: Acute - Plan Hyperkalemia Likely related to respiratory acidosis. Status post Lokelma. Status post IV calcium and IV Lasix. Hyperkalemia resolved. Acute respiratory failure with hypercapnia Respiratory acidosis Acute metabolic encephalopathy Etiology of respiratory failure unclear. Probably secondary to hypoventilation. Clinically improved. Patient is currently oriented x 4. BiPAP therapy as needed for CO2 retention Scheduled bronchodilators Transition IV steroids to p.o. prednisone Pulmonary consulted Monitor BM Iatrogenic hyperthyroidism Patient has markedly low TSH level indicating significant hypothyroidism.. Thyroid replacement therapy is on hold. Recheck TSH in 8 weeks. Status post left total hip replacement Analgesics as needed. DVT prophylaxis Continue PT. Oropharyngeal dysphagia Speech evaluation Continue dysphagia diet for now Acute blood loss anemia Monitor H&H and transfuse as needed for hemoglobin less than 7. Chronic atrial fibrillation Continue amiodarone Patient is not on any anticoagulation. DVT prophylaxis: Heparin SQ and SCD. Advanced directive: Full code.
[2024-02-04 06:33] LABS: Absolute Lymphocytes (CBC) 0.5 K/uL (0.7-4.9); Absolute Monocytes 0.2 K/uL (0.1-1.3); Absolute Neutrophil 6.5 K/uL (1.8-8.0); Basophils % 0.3 % (0-1.3); Hematocrit 23.8 % (36.0-45.0); Hemoglobin 7.2 g/dL (12.0-15.0); Lymphocytes % 6.4 % (15.3-44.8); MCH 30.2 pg (27.0-35.0); MCHC 30.4 g/dL (32.0-36.0); MCV 99.3 fL (80-100); MPV 9.6 fL (7.6-11.3); Monocytes % 2.8 % (3.3-12.3); Neutrophils % 90.5 % (41.7-73.7); Nucleated Red Blood Cells % 0.1 % (0-0); Platelets 342 thou/uL (152-406); Red Cell Distribution Width 19.1 % (12.1-15.2)
[2024-02-04 06:49] LABS: Anion Gap 2.3 mEq/L (5.0-15.0); Potassium 4.3 mEq/L (3.5-5.1)
--- NOTE | 2024-02-04 12:25 | P.CNS ---
Date of Consult: 02/04/24 Reason for Consult: Respiratory failure Chief Complaint: Altered mental status, difficulty swallowing History of Present Illness: Patient is 73 years of age was in the rehab unit s/p right-sided hip replacement became acutely worse developed hypercapnic respiratory failure with myoclonic jerks hyperkalemia and was transferred here to the ICU currently she is doing well no new complaints no prior history of cardiorespiratory problems patient has never smoked no history of heart disorders to be back at her baseline no history of similar episodes before x-ray looked abnormal Allergies No Known Allergies Allergy (Unverified 01/16/24 01:23) Home Medications: Celecoxib [Celebrex] 200 mg PO BID 08/31/23 Enalapril Maleate 20 mg PO DAILY 08/31/23 Hydrocodone Bit/Acetaminophen [Hydrocodon-Acetaminophn 10-325] 0.5 - 1 tab PO Q6HP PRN 08/31/23 Levothyroxine Sodium [Synthroid] 150 mcg PO DAILY 08/31/23 Liothyronine Sodium [Cytomel] 5 mcg PO DAILY 08/31/23 Metoprolol Succinate [Toprol Xl*] 50 mg PO DAILY 08/31/23 Sertraline [Zoloft*] 25 mg PO BEDTIME 08/31/23 Atorvastatin Calcium [Lipitor*] 20 mg PO BEDTIME 01/10/24 Metformin HCl [Glucophage*] 850 mg PO DAILY WITH BREAKFAST 01/10/24 Amiodarone HCl [Cordarone*] 200 mg PO BID #60 tab 01/23/24 Amlodipine [Norvasc*] 5 mg PO DAILY #30 tab 01/23/24 Aspirin [Aspirin EC 81 MG] 81 mg PO DAILY #90 tab 01/23/24 Losartan Potassium [Cozaar*] 50 mg PO BID 01/23/24 Magnesium Oxide [Mag 0X*] 400 mg PO BID tab 01/23/24 Melatonin 10 mg PO BEDTIME PRN PRN 01/23/24 icosapent ethyL [Icosapent Ethyl] 0.5 gm PO DAILY #30 cap 01/23/24 - Past Medical/Surgical History Diabetic: Yes -: HTN -: HLD -: Hypothyroidism -: DM II -: AFIB -: Arthritis -: diabetes -: x 2 -: sinus surgery -: Left total hip arthroplasty - Family History Father Medical History: Heart disease, Diabetes Mother Medical History: Heart disease Sister Medical History: Heart disease - Social History Smoking Status: Former smoker Alcohol use: No CD- Drugs: No Caffeine use: No Place of Residence: Home Review of Systems 10-point ROS is otherwise unremarkable Physical Examination Temp Pulse Resp BP Pulse Ox 98.1 F 56 16 176/71 H 98 02/04/24 08:00 02/04/24 11:19 02/04/24 08:00 02/04/24 08:57 02/04/24 11:19 General: Alert, In no apparent distress, Oriented x3 Respiratory: Clear to auscultation bilaterally Cardiovascular: No edema, Regular rate/rhythm, Normal S1 S2 Gastrointestinal: Normal bowel sounds, Soft and benign Musculoskeletal: No clubbing, No swelling Laboratory Data (last 24 hrs) 02/04/24 02/04/24 04:49 04:49 WBC 7.20 Hgb 7.2 L D Hct 23.8 L Plt Count 342 Sodium 140 Potassium 4.3 BUN 23 H Creatinine 0.53 L Glucose 125 H - Problems (1) Respiratory failure Current Visit: Yes Status: Acute Plan: Patient is 73 years of age transferred from the rehab unit with altered mental status myoclonic jerks hyperkalemia hypercapnic respiratory failure pCO2 was over 100 no prior history of cardiopulmonary disorders recent right hip replacement x-ray shows some bilateral changes may be hypoventilation patient has normal renal function and apparently she was on some RAJEEV inhibitors that was discontinued recommend CT pulmonary angiogram for now repeat chest x-ray arterial blood gases patient echocardiogram on January 14 shows normal left ventricular function element of pulmonary hypertension Qualifiers: Chronicity: unspecified
--- NOTE | 2024-02-04 13:39 | RAD REPORT ---
EXAM DESCRIPTION: CT - Chest For Pe Angio - 02/04/2024 1:19 pm CLINICAL HISTORY: Shortness of breath. Acute respiratory failure COMPARISON: None. TECHNIQUE: Dynamically enhanced axial 3 mm thick images of the chest were obtained during administra tion of 100 mL Isovue 370 IV contrast. Coronal and oblique reconstruction images were generated and r eviewed. Exam utilizes a protocol for optimal evaluation of pulmonary arterial tree. Maximum intensity projections 3D imaging was utilized All CT scans are performed using dose optimization technique as appropriate and may include automated exposure control or mA/KV adjustment according to patient size. FINDINGS: A pulmonary embolus is not seen. An ulcerative plaque is present within the aortic arch. Small left and small to moderate right pleural effusions A pericardial effusion is not seen. Mild right lower lobe atelectasis IMPRESSION: Negative for a pulmonary embolism. Small to moderate right and small left pleural effusions Ulcerated plaque within the aortic arch
--- NOTE | 2024-02-04 13:47 | RAD REPORT ---
EXAM DESCRIPTION: [facility] Single View02/04/2024 1:23 pm CLINICAL HISTORY: Shortness of breath. Respiratory failure COMPARISON: January 23, 2024 FINDINGS: Bilateral pulmonary opacities have mostly resolved. Mild right lower lobe atelectasis Small to moderate right and small left pleural effusions Heart is borderline enlarged
[2024-02-04 13:56] LABS: Blood Gas Oxyhemoglobin 89.7 % (94-97); Blood Gas THB 8.8 g/dl (12-18); Blood O2 Saturation 92.6 % (92-98.5)
--- NOTE | 2024-02-04 15:36 | P.PN ---
Subjective Date of Service: 02/04/24 Chief Complaint: Altered mental status, difficulty swallowing Patient is more awake and interactive today and denies any complaint. She stated she is swallowing better No issues overnight. She denies shortness of breath. Physical Examination - Vital Signs Temperature: 98.2 F Blood Pressure: 118/55 Pulse: 60 Respirations: 16 Pulse Ox (%): 99 - Physical Exam General: Alert, In no apparent distress, Oriented x3 HEENT: Mucous membr. moist/pink, Sclerae nonicteric Neck: JVD not distended Respiratory: Clear to auscultation bilaterally, Normal air movement Cardiovascular: Regular rate/rhythm, Normal S1 S2, Edema (Trace lower extremity edema) Gastrointestinal: Normal bowel sounds, Soft and benign, Non-distended, No tenderness Musculoskeletal: No swelling Integumentary: No rashes, No cyanosis Neurological: Normal strength at 5/5 x4 extr - Studies Laboratory Data (last 24 hrs) 02/04/24 02/04/24 04:49 04:49 WBC 7.20 Hgb 7.2 L D Hct 23.8 L Plt Count 342 Sodium 140 Potassium 4.3 BUN 23 H Creatinine 0.53 L Glucose 125 H Assessment And Plan - Current Problems (Diagnosis) (1) Hyperkalemia Current Visit: Yes Status: Acute (2) Respiratory acidosis Current Visit: Yes Status: Acute (3) Acute respiratory failure with hypercapnia Current Visit: Yes Status: Acute (4) Iatrogenic hyperthyroidism Current Visit: Yes Status: Acute (5) DM type 2 (diabetes mellitus, type 2) Current Visit: Yes Status: Acute (6) S/P total left hip arthroplasty Current Visit: No Status: Acute (7) Chronic atrial fibrillation Current Visit: Yes Status: Acute - Plan Hyperkalemia Likely related to respiratory acidosis. Status post Lokelma. Status post IV calcium and IV Lasix. Hyperkalemia resolved. Continue to monitor BMP. Acute respiratory failure with hypercapnia Respiratory acidosis Acute metabolic encephalopathy Etiology of respiratory failure unclear. Probably secondary to hypoventilation. Clinically improved. Patient is currently oriented x 4. CTA thorax negative for pulmonary embolism, no infiltrate. BiPAP therapy as needed for CO2 retention Scheduled bronchodilators Pulmonary input appreciated Iatrogenic hyperthyroidism Patient has markedly low TSH level indicating significant hypothyroidism.. Thyroid replacement therapy is on hold. Recheck TSH in 8 weeks. Status post left total hip replacement Analgesics as needed. DVT prophylaxis Continue PT. Patient planned for SNF placement. Oropharyngeal dysphagia Speech evaluation Dysphagia diet for now Acute blood loss anemia Monitor H&H and transfuse as needed for hemoglobin less than 7. Chronic atrial fibrillation Continue amiodarone Patient is not on any anticoagulation. DVT prophylaxis: Heparin SQ and SCD. Advanced directive: Full code.
[2024-02-04 16:09] LABS: Urine Bilirubin NEGATIVE (Negative); Urine Blood Negative (Negative); Urine Clarity Clear (Clear); Urine Color Light-Yellow (Yellow); Urine Glucose NEGATIVE (Negative); Urine Ketones NEGATIVE (Negative); Urine Microscopic Reflex YN NO UMIC; Urine Nitrite NEGATIVE (Negative); Urine Protein NEGATIVE (Negative); Urine Urobilinogen Normal (Normal)
[2024-02-04 16:24] LABS: Specific Gravity > 1.030 (1.005-1.030)
[2024-02-04] MEDS: predniSONE 20 MG TAB PO SCH (21:33)
[2024-02-05 05:51] LABS: Absolute Lymphocytes (CBC) 0.7 K/uL (0.7-4.9); Absolute Monocytes 0.5 K/uL (0.1-1.3); Absolute Neutrophil 5.7 K/uL (1.8-8.0); Basophils % 0.1 % (0-1.3); Hematocrit 25.2 % (36.0-45.0); Hemoglobin 8.2 g/dL (12.0-15.0); Lymphocytes % 10.2 % (15.3-44.8); MCH 31.9 pg (27.0-35.0); MCHC 32.6 g/dL (32.0-36.0); MCV 97.8 fL (80-100); MPV 8.5 fL (7.6-11.3); Monocytes % 7.2 % (3.3-12.3); Neutrophils % 82.5 % (41.7-73.7); Nucleated Red Blood Cells % 0.2 % (0-0); Platelets 394 thou/uL (152-406); RBC Red Blood Cell Count 2.57 M/uL (3.86-4.86); Red Cell Distribution Width 18.3 % (12.1-15.2)
[2024-02-05 06:09] LABS: Albumin 2.5 g/dL (3.4-5.0); Albumin/Globulin Ratio 0.7 (1.1-1.8); Anion Gap 3.9 mEq/L (5.0-15.0); Bilirubin Total 0.3 mg/dL (0.2-1.0); Globulin 3.5 g/dL (2.3-3.5); Potassium 4.9 mEq/L (3.5-5.1)
--- NOTE | 2024-02-05 08:56 | RAD REPORT ---
[facility]AM DESCRIPTION[facility] CLINICAL HISTORY: Resp failure COMPARISON: Chest Single View dated 02/04/2024; Chest Single View dated 01/23/2024; Chest Single View dated 01/16/2024; Chest Single View dated 01/16/2024 TECHNIQUE: Portable AP view of the chest. FINDINGS: Right arm PICC unchanged in position with tip projecting at the distal SVC. The lungs are clear apart from stable right perihilar atelectasis. No pneumothorax or effusion. The cardiomediasti nal contours are unremarkable. IMPRESSION: No acute cardiopulmonary process.
--- NOTE | 2024-02-05 12:06 | P.PN ---
Subjective Date of Service: 02/05/24 Chief Complaint: Respiratory failure Subjective: Improving (Patient is improving doing well no complaints denies any dyspnea patient complains excessive daytime somnolence early snoring) Review of Systems Unremarkable Physical Examination - Vital Signs Temperature: 97.6 F Blood Pressure: 177/79 Pulse: 58 Respirations: 12 Pulse Ox (%): 90 - Physical Exam General: Alert, Oriented x3 Respiratory: Clear to auscultation bilaterally Cardiovascular: No edema, Regular rate/rhythm - Studies Laboratory Data (last 24 hrs) 02/05/24 02/05/24 05:39 05:39 WBC 6.90 Hgb 8.2 L D Hct 25.2 L Plt Count 394 Sodium 138 Potassium 4.9 D BUN 24 H Creatinine 0.55 Glucose 119 H Magnesium 2.0 Total Bilirubin 0.3 AST 182 H ALT 231 H Alkaline Phosphatase 120 H Assessment And Plan - Current Problems (Diagnosis) (1) Respiratory failure Current Visit: Yes Status: Acute Plan: Repeat blood gases confirmed hypoxemic hypercarbic respiratory failure will need a trial of bronchodilators follow-up as an outpatient pulmonary function test rule out obstructive sleep apnea she denies any dyspnea labs chemistries reviewed reviewed patient's chest x-ray is clear no evidence of pulmonary embolism small bilateral pleural effusion patient will need a sleep study as an outpatient Qualifiers: Chronicity: unspecified
--- NOTE | 2024-02-05 14:44 | P.PN ---
Date of Service: 02/05/24 Subjective Doing well this morning Denies any complaints Alert/oriented No acute events overnight - Physical Exam General: Alert, In no apparent distress, Oriented x3 HEENT: Mucous membr. moist/pink, Sclerae nonicteric Neck: JVD not distended Respiratory: Clear to auscultation bilaterally, Normal air movement Cardiovascular: Regular rate/rhythm, Normal S1 S2, Edema (Trace lower extremity edema) Gastrointestinal: Normal bowel sounds, Soft and benign, Non-distended, No tenderness Musculoskeletal: No swelling Integumentary: No rashes, No cyanosis Neurological: Normal strength at 5/5 x4 extr Assessment and plan Hyperkalemia Likely related to respiratory acidosis. Status post Lokelma. Status post IV calcium and IV Lasix. Hyperkalemia resolved. Continue to monitor BMP. Elevated aminotransferase levels Chemistry today shows elevations in AST/ALT Repeat chemistry tomorrow, will obtain abdominal ultrasound to further evaluate Denies any abdominal pain, nausea, vomiting Acute respiratory failure with hypercapnia Respiratory acidosis Acute metabolic encephalopathy Etiology of respiratory failure unclear. Probably secondary to hypoventilation. Clinically improved. Patient is currently oriented x 4. CTA thorax negative for pulmonary embolism, no infiltrate. BiPAP therapy as needed for CO2 retention Scheduled bronchodilators-patient refused Pulmonary input appreciated Will need outpatient sleep study Iatrogenic hyperthyroidism Patient has markedly low TSH level indicating significant hyperthyroidism.. Thyroid replacement therapy is on hold. Recheck TSH in 8 weeks. Status post left total hip replacement Analgesics as needed. DVT prophylaxis Continue PT. Patient planned for SNF placement. Oropharyngeal dysphagia Speech evaluation Dysphagia diet for now Acute blood loss anemia Monitor H&H and transfuse as needed for hemoglobin less than 7. Chronic atrial fibrillation Continue amiodarone Patient is not on any anticoagulation. DVT prophylaxis: Heparin SQ and SCD. Advanced directive: Full code.
[2024-02-05] MEDS: HYDRALAZINE HCL 20 MG/ML VIAL IV PRN (17:44)
--- NOTE | 2024-02-05 20:39 | RAD REPORT ---
EXAM DESCRIPTION: US - Abdomen Exam Limited - 02/05/2024 8:21 pm CLINICAL HISTORY: Abdominal pain. Elevated liver enzymes COMPARISON: None. FINDINGS: The liver has a borderline increased echotexture. Hepatopetal flow is present. 18 millimeters soft structure within the gallbladder. Borderline gallbladder wall thickening. Biliary tree normal caliber Suboptimal evaluation spleen secondary to overlying bowel gas IMPRESSION: 18 millimeter soft tissue structure within the gallbladder. This could be benign or yasmin gnant. Borderline gallbladder wall thickening Borderline increased hepatic echotexture equivocal for mild infiltration
[2024-02-06 06:13] LABS: Hematocrit 26.4 % (36.0-45.0); Hemoglobin 8.5 g/dL (12.0-15.0); MCH 31.4 pg (27.0-35.0); MCHC 32.1 g/dL (32.0-36.0); Platelets 407 thou/uL (152-406); RBC Red Blood Cell Count 2.69 M/uL (3.86-4.86)
[2024-02-06 06:14] LABS: MPV 9.5 fL (7.6-11.3); Red Cell Distribution Width 18.6 % (12.1-15.2)
[2024-02-06 06:35] LABS: Albumin 2.6 g/dL (3.4-5.0); Albumin/Globulin Ratio 0.8 (1.1-1.8); Anion Gap 3.5 mEq/L (5.0-15.0); Bilirubin Total 0.2 mg/dL (0.2-1.0); Globulin 3.3 g/dL (2.3-3.5); Potassium 4.5 mEq/L (3.5-5.1); Protein, Total 5.9 g/dL (6.4-8.2)
[2024-02-06] MEDS: AMLODIPINE 5 MG TAB PO SCH (08:13)
--- NOTE | 2024-02-06 15:08 | P.PN ---
Date of Service: 02/06/24 Subjective Doing well this morning Denies any complaints Alert/oriented No acute events overnight - Physical Exam General: Alert, In no apparent distress, Oriented x3 HEENT: Mucous membr. moist/pink, Sclerae nonicteric Neck: JVD not distended Respiratory: Clear to auscultation bilaterally, Normal air movement Cardiovascular: Regular rate/rhythm, Normal S1 S2, Edema (Trace lower extremity edema) Gastrointestinal: Normal bowel sounds, Soft and benign, Non-distended, No tenderness Musculoskeletal: No swelling Integumentary: No rashes, No cyanosis Neurological: Normal strength at 5/5 x4 extr Assessment and plan Hyperkalemia Likely related to respiratory acidosis. Status post Lokelma. Status post IV calcium and IV Lasix. Hyperkalemia resolved. Continue to monitor BMP. Elevated aminotransferase levels Chemistry today shows elevations in AST/ALT, improving Abdominal ultrasound performed shows 18 mm soft tissue mass in the gallbladder Discussed with general surgery will obtain MRI liver, MRCP to further evaluate Denies any abdominal pain, nausea, vomiting Monitor CMP daily Acute respiratory failure with hypercapnia Respiratory acidosis Acute metabolic encephalopathy Etiology of respiratory failure unclear. Probably secondary to hypoventilation. Clinically improved. Patient is currently oriented x 4. CTA thorax negative for pulmonary embolism, no infiltrate. BiPAP therapy as needed for CO2 retention Scheduled bronchodilators-patient refused Pulmonary input appreciated Will need outpatient sleep study Iatrogenic hyperthyroidism Patient has markedly low TSH level indicating significant hyperthyroidism.. Thyroid replacement therapy is on hold. Recheck TSH in 8 weeks. Status post left total hip replacement Analgesics as needed. DVT prophylaxis Continue PT. Patient planned for SNF placement. Oropharyngeal dysphagia Speech evaluation Dysphagia diet for now Acute blood loss anemia Monitor H&H and transfuse as needed for hemoglobin less than 7. Chronic atrial fibrillation Continue amiodarone Patient is not on any anticoagulation. DVT prophylaxis: Heparin SQ and SCD. Advanced directive: Full code.
--- NOTE | 2024-02-06 20:12 | RAD REPORT ---
EXAM DESCRIPTION: MRI - Abdomen WWo Cont - 02/06/2024 7:59 pm CLINICAL HISTORY: liver-gallbladder soft tissue mass Abdominal pain. COMPARISON: Cholangiogram dated 02/06/2024; Abdomen Exam Limited dated 02/05/2024 FINDINGS: Small left and moderate right pleural effusion is noted. The liver is normal size. No intra or extrahepatic biliary tree dilatation. No aggressive liver lesio n. The spleen, pancreas, adrenal glands and kidneys are within normal limits. No abnormal enhancement in the region of the gallbladder. Mild free fluid is seen in the abdomen. IMPRESSION: Small left and moderate right pleural effusion. Mild free fluid in the abdomen. No pathologic enhancement in the gallbladder.
--- NOTE | 2024-02-06 20:17 | RAD REPORT ---
EXAM DESCRIPTION: MRI - Cholangiogram - 02/06/2024 7:59 pm CLINICAL HISTORY: liver-gallbladder soft tissue mass Abdominal pain COMPARISON: No comparisons FINDINGS: Three-dimensional MRCP was performed using maximum intensity projection reconstruction on the same work station. No intrahepatic biliary tree dilatation is seen. The common bile duct is normal caliber without evide nce of retained stone, stricture or mass. The pancreatic duct is not pathologically dilated. Filling defect in the gallbladder has the appearance of tumefactive sludge. Mild free fluid is seen in the upper abdomen. IMPRESSION: Soft tissue structure gallbladder favored represent tumefactive sludge. Recommend follow up gallbladder ultrasound in 3 months to monitor however. No pathologic biliary tree dilatation.
[2024-02-07 03:59] VITALS: BMI 29.4
[2024-02-07 05:24] LABS: Hematocrit 29.8 % (36.0-45.0); Hemoglobin 9.4 g/dL (12.0-15.0); MCH 31.2 pg (27.0-35.0); MCHC 31.5 g/dL (32.0-36.0); MCV 98.7 fL (80-100); MPV 9.5 fL (7.6-11.3); Platelets 348 thou/uL (152-406); RBC Red Blood Cell Count 3.02 M/uL (3.86-4.86); Red Cell Distribution Width 18.9 % (12.1-15.2)
[2024-02-07 06:09] LABS: Albumin 2.6 g/dL (3.4-5.0); Albumin/Globulin Ratio 0.8 (1.1-1.8); Anion Gap 4.3 mEq/L (5.0-15.0); Bilirubin Total 0.4 mg/dL (0.2-1.0); Globulin 3.4 g/dL (2.3-3.5); Potassium 4.3 mEq/L (3.5-5.1)
--- NOTE | 2024-02-07 14:29 | P.PN ---
Date of Service: 02/07/24 Subjective Doing well this morning Denies any complaints Alert/oriented No acute events overnight - Physical Exam General: Alert, In no apparent distress, Oriented x3 HEENT: Mucous membr. moist/pink, Sclerae nonicteric Neck: JVD not distended Respiratory: Clear to auscultation bilaterally, Normal air movement Cardiovascular: Regular rate/rhythm, Normal S1 S2, Edema (Trace lower extremity edema) Gastrointestinal: Normal bowel sounds, Soft and benign, Non-distended, No tenderness Musculoskeletal: No swelling Integumentary: No rashes, No cyanosis Neurological: Normal strength at 5/5 x4 extr Assessment and plan Hyperkalemia Likely related to respiratory acidosis. Status post Lokelma. Status post IV calcium and IV Lasix. Hyperkalemia resolved. Continue to monitor BMP. Elevated aminotransferase levels Chemistry today shows elevations in AST/ALT, improving Abdominal ultrasound performed shows 18 mm soft tissue mass in the gallbladder Subsequent MRI/MRCP not concerning for malignancy, suggest gallbladder sludge Repeat abdominal ultrasound in 3 months to further evaluate Denies any abdominal pain, nausea, vomiting Monitor CMP daily Hypertension Added Norvasc 5 mg 02/05 Increased to 10 mg 02/07 AM Acute respiratory failure with hypercapnia Respiratory acidosis Acute metabolic encephalopathy Etiology of respiratory failure unclear. Probably secondary to hypoventilation. Clinically improved. Patient is currently oriented x 4. CTA thorax negative for pulmonary embolism, no infiltrate. BiPAP therapy as needed for CO2 retention Scheduled bronchodilators-patient refused Pulmonary input appreciated Will need outpatient sleep study Iatrogenic hyperthyroidism Patient has markedly low TSH level indicating significant hyperthyroidism.. Thyroid replacement therapy is on hold. Recheck TSH in 8 weeks. Status post left total hip replacement Analgesics as needed. DVT prophylaxis Continue PT. Patient planned for SNF placement. Oropharyngeal dysphagia Speech evaluation Dysphagia diet for now Acute blood loss anemia Monitor H&H and transfuse as needed for hemoglobin less than 7. Chronic atrial fibrillation Continue amiodarone Patient is not on any anticoagulation. DVT prophylaxis: Heparin SQ and SCD. Advanced directive: Full code.
[2024-02-08 05:06] LABS: Hemoglobin 8.2 g/dL (12.0-15.0); MCH 30.7 pg (27.0-35.0); MCHC 31.4 g/dL (32.0-36.0); MCV 97.6 fL (80-100); Platelets 344 thou/uL (152-406); RBC Red Blood Cell Count 2.67 M/uL (3.86-4.86); Red Cell Distribution Width 18.3 % (12.1-15.2)
[2024-02-08 05:22] LABS: Albumin 2.3 g/dL (3.4-5.0); Albumin/Globulin Ratio 0.8 (1.1-1.8); Anion Gap 1.2 mEq/L (5.0-15.0); Bilirubin Total 0.3 mg/dL (0.2-1.0); Potassium 4.2 mEq/L (3.5-5.1); Protein, Total 5.3 g/dL (6.4-8.2)
[2024-02-08] MEDS: AMLODIPINE 10 MG TAB PO SCH (08:45)
[2024-02-08 09:28] VITALS: O2SAT 96
[2024-02-08 13:12] VITALS: BP 144/64; TEMP 97.5
--- NOTE | 2024-02-08 15:02 | P.DS ---
Admission Date: 02/02/24 Discharge Date: 02/08/24 Disposition: TRANSFER TO SNF - REHAB Discharge Condition: GOOD Reason for Admission: Respiratory failure Brief History of Present Illness: 73-year-old woman with a history of chronic atrial fibrillation, hypothyroidism on thyroxine replacement therapy, recently hospitalized and underwent left hip arthroplasty and discharged to acute rehab was noted to have hyperkalemia, tremors and progressive difficulty swallowing. Patient appeared lethargic but oriented x 3. Hospitalist service was consulted to evaluate patient. Patient given a dose of Lokelma. Arterial blood gas showed CO2 retention with pCO2 up to 102. Patient started on BiPAP and admitted to the medical floor for further management. Hospital Course: Assessment and plan Hyperkalemia Elevated aminotransferase levels Hypertension Acute respiratory failure with hypercapnia Respiratory acidosis Acute metabolic encephalopathy Iatrogenic hyperthyroidism Status post left total hip replacement Oropharyngeal dysphagia Acute blood loss anemia Chronic atrial fibrillation Patient was initially admitted to the hospital on 01/14 after having a left total hip arthroplasty. She had some hypotension after surgery and was monitored in the hospital, on 01/22 patient was transferred to inpatient rehab for further physical therapy after her hip replacement. During her stay in inpatient rehab patient became lethargic, was having some difficulty swallowing and hypercapnia. She was brought back down to the acute floor and treated initially with BiPAP. Her respiratory status significantly improved. Patient was deemed appropriate for jail facility at discharge and this process was initiated. On her morning labs it was noted that her LFTs had become elevated, patient was asymptomatic did not any abdominal pain and an abdominal ultrasound was ordered which showed an 18 mm gallbladder soft tissue mass. Case was discussed with general surgery who recommended MRI for further evaluation. MRI and MRCP showed gallbladder sludge but did recommend repeat ultrasound in 3 months. LFTs improved. TSH was less than 0.005, free T4 is 1.57. We are currently holding her levothyroxine, recommend repeat TSH in 8 weeks prior to reinitiation. Patient has been stable, has been not been approved for jail at [facility] for further physical therapy/rehab. General: Alert, In no apparent distress, Oriented x3 HEENT: Mucous membr. moist/pink, Sclerae nonicteric Neck: JVD not distended Respiratory: Clear to auscultation bilaterally, Normal air movement Cardiovascular: Regular rate/rhythm, Normal S1 S2, Edema (Trace lower extremity edema) Gastrointestinal: Normal bowel sounds, Soft and benign, Non-distended, No tenderness Musculoskeletal: No swelling Integumentary: No rashes, No cyanosis Neurological: Normal strength at 5/5 x4 extr Vital Signs/Physical Exam: Temp Pulse Resp BP Pulse Ox 97.5 F 58 12 144/64 H 90 L 02/08/24 12:00 02/08/24 12:00 02/08/24 12:00 02/08/24 12:00 02/08/24 12:00 Laboratory Data at Discharge: WBC 6.80 thou/uL (4.3-10.9) 02/08/24 04:51 Hgb 8.2 g/dL (12.0-15.0) L D 02/08/24 04:51 Hct 26.0 % (36.0-45.0) L 02/08/24 04:51 Plt Count 344 thou/uL (152-406) 02/08/24 04:51 Sodium 138 mEq/L (136-145) 02/08/24 04:51 Potassium 4.2 mEq/L (3.5-5.1) 02/08/24 04:51 BUN 17 mg/dL (7-18) 02/08/24 04:51 Creatinine 0.45 mg/dL (0.55-1.02) L 02/08/24 04:51 Glucose 75 mg/dL (74-106) 02/08/24 04:51 Phosphorus 3.3 mg/dL (2.5-4.9) 02/03/24 07:02 Magnesium 2.0 mg/dL (1.6-2.4) 02/05/24 05:39 Total Bilirubin 0.3 mg/dL (0.2-1.0) 02/08/24 04:51 AST 24 U/L (15-37) 02/08/24 04:51 ALT 100 U/L (13-56) H 02/08/24 04:51 Alkaline Phosphatase 103 U/L (45-117) 02/08/24 04:51 Home Medications: Celecoxib [Celebrex] 200 mg PO BID 08/31/23 Enalapril Maleate 20 mg PO DAILY 08/31/23 Hydrocodone Bit/Acetaminophen [Hydrocodon-Acetaminophn 10-325] 0.5 - 1 tab PO Q6HP PRN 08/31/23 Liothyronine Sodium [Cytomel] 5 mcg PO DAILY 08/31/23 Metoprolol Succinate [Toprol Xl*] 50 mg PO DAILY 08/31/23 Sertraline [Zoloft*] 25 mg PO BEDTIME 08/31/23 Atorvastatin Calcium [Lipitor*] 20 mg PO BEDTIME 01/10/24 Metformin HCl [Glucophage*] 850 mg PO DAILY WITH BREAKFAST 01/10/24 Amiodarone HCl [Cordarone*] 200 mg PO BID #60 tab 01/23/24 Aspirin [Aspirin EC 81 MG] 81 mg PO DAILY #90 tab 01/23/24 Losartan Potassium [Cozaar*] 50 mg PO BID 01/23/24 Magnesium Oxide [Mag 0X*] 400 mg PO BID tab 01/23/24 Melatonin 10 mg PO BEDTIME PRN PRN 01/23/24 icosapent ethyL [Icosapent Ethyl] 0.5 gm PO DAILY #30 cap 01/23/24 Amlodipine [Norvasc*] 10 mg PO DAILY tab 02/08/24 Physician Discharge Instructions: Patient was initially admitted to the hospital on 01/14 after having a left total hip arthroplasty. She had some hypotension after surgery and was monitored in the hospital, on 01/22 patient was transferred to inpatient rehab for further physical therapy after her hip replacement. During her stay in inpatient rehab patient became lethargic, was having some difficulty swallowing and hypercapnia. She was brought back down to the acute floor and treated initially with BiPAP. Her respiratory status significantly improved. Patient was deemed appropriate for jail facility at discharge and this process was initiated. On her morning labs it was noted that her LFTs had become elevated, patient was asymptomatic did not any abdominal pain and an abdominal ultrasound was ordered which showed an 18 mm gallbladder soft tissue mass. Case was discussed with general surgery who recommended MRI for further evaluation. MRI and MRCP showed gallbladder sludge but did recommend repeat ultrasound in 3 months. LFTs improved. TSH was less than 0.005, free T4 is 1.57. We are currently holding her levothyroxine, recommend repeat TSH in 8 weeks prior to reinitiation. Patient has been stable, has been not been approved for jail at [facility] for further physical therapy/rehab. Diet: Regular Activity: Fall precautions Followup: Jackson Llanos MD [Primary Care Provider] - 1-2 Weeks Time spent managing pt's care (in minutes): 36
== END 2024-02-08 15:20 | DRG 640 ==
LOC: 2ND 12:47
PROVIDERS: ADMIT Internal Medicine; ATTEND Hospitalist
PROC: 5A09457 Assistance with Respiratory Ventilation, 24-96 Consecutive Hours, Continuous Positive Airway Pressure (ICD-10-PCS; 2024-02-02)
PROC: 4A033R1 Measurement of Arterial Saturation, Peripheral, Percutaneous Approach (ICD-10-PCS; principal; 2024-02-04)
DX: E87.5 Hyperkalemia (principal); G93.41 Metabolic encephalopathy; J96.02 Acute respiratory failure with hypercapnia; I48.20 Chronic atrial fibrillation, unspecified; D62 Acute posthemorrhagic anemia; E03.9 Hypothyroidism, unspecified; E11.9 Type 2 diabetes mellitus without complications; E78.5 Hyperlipidemia, unspecified; E05.90 Thyrotoxicosis, unspecified without thyrotoxic crisis or storm; R13.12 Dysphagia, oropharyngeal phase; Z79.82 Long term (current) use of aspirin; Z79.84 Long term (current) use of oral hypoglycemic drugs; Z96.642 Presence of left artificial hip joint; Z79.890 Hormone replacement therapy; Z79.899 Other long term (current) drug therapy; Z87.891 Personal history of nicotine dependence
CPT/HCPCS: 36415; 36569; 36600; 71045; 71275; 74181; 74183; 76705; 80048; 80053; 81003; 82805; 82947; 83735; 84100; 85025; 85027; 92523; 92610; 93005; 94660; 94760; 97116; 97161; 97530; A9577; J0360; J1644; J1940; J2919; J7030; J7512; J7613; J7644; Q9967